=== PATIENT | female | born 1970 | race African-American/Black ===

== ENCOUNTER 2024-06-28 14:54 | Emergency (ER) | payer OTHER, SELFPAY ==
--- NOTE | ~2024-06-28 | XR_ITS ---
CLINICAL HISTORY: fall 4 view right wrist Comparison: None Findings: There is cortical irregularity in the triquetral bone. There is no dislocation. There are ausm-xh-zepbzeuw degenerative changes. No radiopaque foreign body. No abnormal widening of the scapholunate interval. IMPRESSION: 1. Diffuse soft tissue swelling. 2. Suspect a nondisplaced triquetral bone fracture. This document has been electronically signed by: Pretty Hudson DO on 06/28/2024 20:59:11
--- NOTE | ~2024-06-28 | XR_ITS ---
CLINICAL HISTORY: trauma 3 view left shoulder Comparison: None Findings: No fractures or dislocations. Mild narrowing of the glenohumeral joint. Moderate narrowing of the acromioclavicular joint. No significant degenerative spurring. No radiopaque foreign body. IMPRESSION: No acute fracture or dislocation. This document has been electronically signed by: Pretty Hudson DO on 06/28/2024 16:37:24
--- NOTE | ~2024-06-28 | XR_ITS ---
CLINICAL HISTORY: trauma 3 view left elbow Comparison: None Findings: No acute fractures. Normal alignment. No significant loss of joint space, osteophytes, or erosions. No joint effusion. No radiopaque foreign body. IMPRESSION: No acute fracture or dislocation. This document has been electronically signed by: Pretty Hudson DO on 06/28/2024 17:07:08
--- NOTE | ~2024-06-28 | XR_ITS ---
CLINICAL HISTORY: trauma 4 view left wrist Comparison: None Findings: There is cortical irregularity in the triquetral bone. There is a small articulating lucency in the medial distal radius that is best seen on the oblique projection. No dislocation. Naxg-yr-melbyaol degenerative changes in the 1st carpometacarpal, intercarpal and radiocarpal joints. No radiopaque foreign body. IMPRESSION: 1. Nondisplaced fracture suspected in the triquetral bone. 2. Probable nondisplaced articulating fracture in the medial distal radius. This document has been electronically signed by: Pretty Hudson DO on 06/28/2024 16:44:17
--- NOTE | ~2024-06-28 | CT_ITS ---
CLINICAL HISTORY: trauma CT CERVICAL SPINE WITHOUT CONTRAST Comparison: None Findings: Minimal grade 1 spondylolisthesis C5-6, likely degenerative. Moderate disc space narrowing with endplate spurring C5-6. No acute fractures or dislocations. Please see separate report for CT head/brain. No cervical fluid collections or masses. Probable atrophic thyroid gland. Lung apices are clear. IMPRESSION: No acute fracture in the cervical spine. This document has been electronically signed by: Pretty Hudson DO on 06/28/2024 17:29:32
--- NOTE | ~2024-06-28 | CT_ITS ---
CLINICAL HISTORY: trauma CT HEAD WITHOUT CONTRAST Comparison: None Findings: No acute intracranial hemorrhage, extra-axial fluid collection, hydrocephalus or midline shift. No significant atrophy-like change No significant white matter disease. There is no sinus or mastoid fluid. Visualized orbits: No acute abnormalities. There is no acute fracture. IMPRESSION: 1. No acute intracranial hemorrhage. This document has been electronically signed by: Pretty Hudson DO on 06/28/2024 17:25:26
--- NOTE | ~2024-06-28 | XR_ITS ---
CLINICAL HISTORY: pain 4 view left knee Comparison: None Findings: No fractures or dislocations. Wtib-qx-fsnotdkk tricompartmental joint space narrowing. Faint meniscal calcifications. No joint effusion. No radiopaque foreign body. IMPRESSION: No acute fracture, dislocation or significant joint effusion. This document has been electronically signed by: Pretty Hudson DO on 06/28/2024 17:06:53
--- NOTE | ~2024-06-28 | XR_ITS ---
CLINICAL HISTORY: pain 4 view right knee Comparison: None Findings: Bones intact. No dislocations. Jzlr-rz-rkxpdgud tricompartmental joint space narrowing with degenerative spurring. No joint effusion. No radiopaque foreign body. IMPRESSION: No acute fracture, dislocation or significant joint effusion. This document has been electronically signed by: Pretty Hudson DO on 06/28/2024 17:03:41
[2024-06-28 15:45] VITALS: BP 125/57; PULSE 71; RESP 18; TEMP 37; O2SAT 95; BMI 31.1
--- NOTE | 2024-06-28 15:46 | ED.GENADULT ---
HPI - General Adult General Chief complaint: Fall Stated complaint: L Side Pain From Face Down Fell Time Seen by Provider: 06/28/24 19:17 Source: patient and family Mode of arrival: ambulatory Limitations: no limitations History of Present Illness ED Provider: JUDY GONZALES narrative: 53 yo female with PMH of restrictive lung ds, unnamed autoimmune ds, hx of falls here with c/o fall on wednesday night leaned against a door and next thing she knew she was on the ground with knee, wrist pain, head pain. Not on thinners, no known LOC states she falls a lot and it is unclear why. She has no new CP/SOB, GIB, n/v/d, She came in today due to bone pain. Normally follows with [facility] and has told her PCP she falls but no sig work up or PT done for gait issues. MD complaint: fall Onset (ago): day(s) (Wednesday) Location: head, left, right, upper extremity and lower extremity Radiation: non-radiation Severity: mild Quality: aching Pain Consistency: constant Relieving factors: none Exacerbating factors: movement Associated symptoms: denies other symptoms Treatments prior to arrival: none Related Data Allergies Allergy/AdvReac Type Severity Reaction Status Date / Time acetaminophen [From Tylenol] Allergy Anaphylaxis Verified 06/28/24 15:48 levofloxacin [From Levaquin] Allergy Anaphylaxis Verified 06/28/24 15:48 Penicillins [PCN] Allergy Anaphylaxis Verified 06/28/24 15:48 sulfamethoxazole Allergy Anaphylaxis Verified 06/28/24 15:48 [From Bactrim] trimethoprim [From Bactrim] Allergy Anaphylaxis Verified 06/28/24 15:48 Review of Systems Review of Systems: Constitutional : No Fever, No Chills ENT/Mouth : No Ear Pain, No Hoarseness, No sore throat Eyes: No Eye Pain, No Swelling, No Redness, No Foreign Body Cardiovascular : No Chest Pain, No SOB Respiratory : No Cough, No Dyspnea Gastrointestinal : No Nausea, No Vomiting, No Diarrhea, No abdominal Pain Genitourinary : No Dysuria, No Hematuria Musculoskeletal : positive joint pain, No Myalgias, No Joint Swelling Skin : No Skin lacerations, No rash Neuro : No Weakness, No Numbness, No Loss of Consciousness, No Dizziness, No Headache All other systems reviewed and are negative [facility] Past Medical History Attestation statement: The following information was validated with the patient. Medical History Fall Social History Social History (Updated 06/28/24 @ 20:50 by Roselia Vizcarra DO) Patient Tobacco Use Status: Never used Tobacco Advance Directives: No Advance Directives Information Provided: No Do you have a plan to hurt others: No Plan Physical Exam ED Vital Signs: Vital Signs - 24 hr 06/28/24 15:45 Temperature 98.6 F Pulse Rate 71 Respiratory Rate 18 Blood Pressure 125/57 L Pulse Oximetry 95 Oxygen Delivery Method Room Air BMI result Body Mass Index 31.1 Appearance: Alert. Oriented X3. No acute distress. Eyes: Pupils equal, round and reactive to light. ENT: Pharynx normal. Neck: Normal inspection. Neck supple. CVS: Normal heart rate and rhythm. Pulses normal. Respiratory: No respiratory distress. Breath sounds normal. Abdomen: Soft and non-tender. Skin: Skin warm and dry. Normal skin color. Extremities: No lower extremity edema. ttp along both knees, shoulder L wrist and R wrist - NV intact Neuro: Oriented X 3. No motor deficit. No sensory deficit. Course Course Course Narrative: RME, this is a rapid medical exam performed by Carlin Martini please refer to primary provider for complete H&P- 53-year-old female presents for evaluation of left-sided pain after falling 3 days ago. She reports that she had a mechanical fall, struck her forehead on the ground and also injured her left shoulder, elbow and wrist. Plan for imaging Procedures Orthopedic Splinting/Casting Injury #1: Side: left Upper Extremity Injury Location: wrist Upper Extremity Immobilizer: volar splint Additional Comments: Patient tolerated the procedure well. There were no complications. No neurovascular compromise postprocedure. Injury #2: Side: right Upper Extremity Immobilizer: wrist splint Medical Decision Making Medical Decision Making MDM Narrative: 53 yo female with PMH of restrictive lung ds, unnamed autoimmune ds, hx of falls here with c/o recurrent falls but no dizziness, CP/SOB, GIB symtoms, n/v/d at this time will obtain labs, CT scan of head, neck, xrays she is moving both hands but reports some pain NV intact. No preceding episodes to suggest ACS/VTE, arrhythmia, anemia, dehydration. Overall suspect more trip and fall, no seizures reported. Differential Diagnosis Differential Diagnoses: The differential diagnosis associated with the presentation includes sprain, strain, fracture, anemia, dehydration Admission/Observation Consideration of admission/observation: Escalation of care including admission/observation considered work up negative stable for DC Lab Data [facility] Lab Attestation statement: I reviewed the patient's lab results. 06/28/24 19:48 06/28/24 19:48 Labs: Lab Results 06/28/24 Range/Units 19:48 WBC 5.3 (4.8-10.8) X10*3/uL RBC 4.21 (4.20-5.50) X10*6/uL Hgb 12.2 (12.0-16.0) g/dl Hct 36.6 L (37.0-47.0) % MCV 86.9 (80.0-98.0) fL MCH 29.0 (27.0-33.0) pg MCHC 33.3 (31.0-35.0) g/dl RDW 12.5 (11.0-16.0) % Plt Count 261 (160-400) X10*3/uL MPV 9.4 (9.4-12.3) fL Immature Gran % (Auto) 0.2 (0.0-0.4) % Neut % (Auto) 54.8 (45-73) % Lymph % (Auto) 31.7 (20-40) % [place] % (Auto) 9.5 (2-11) % Eos % (Auto) 3.2 (0-4) % Baso % (Auto) 0.6 (0-2) % Lymph # (Auto) 1.7 (1.2-4.9) X10*3/uL [place] # (Auto) 0.5 (0.1-1.2) X10*3/uL Eos # (Auto) 0.2 (0.0-0.4) X10*3/uL Baso # (Auto) 0.0 (0.0-0.2) X10*3/uL Abs Immat Gran (auto) 0.01 (0.00-0.03) X10*3/uL Absolute Neuts (auto) 2.9 (2.0-8.3) x10*3/uL Absolute Nucleated RBC 0.000 (0.0-0.012) X10*3/uL Nucleated RBC % (auto) 0.0 (0.0-0.2) /100WBC Sodium 141 (135-145) mmol/L Potassium 4.6 (3.3-5.1) mmol/L Chloride 108 (96-108) mmol/L Carbon Dioxide 26 (22-29) mmol/L Anion Gap 12 (12-20) BUN 12 (9-16) mg/dL Creatinine 0.61 (0.5-1.4) mg/dL Estim Creat Clear Calc 101.3 Estimated GFR > 60 Random Glucose 89 (60-115) mg/dL Calcium 9.0 (8.4-10.2) mg/dL Magnesium 2.0 (1.6-2.6) mg/dL Total Bilirubin 0.2 (0.0-1.0) mg/dL Direct Bilirubin < 0.2 (0.0-0.5) mg/dL AST 30 (5-31) U/L ALT 15 (0-31) U/L Alkaline Phosphatase 72 (39-117) U/L Total Protein 7.6 (6.5-8.0) g/dL Albumin 3.9 (3.5-5.0) g/dL Independent Interpretation I performed an independent interpretation of an: EKG, Plain X-Ray (trauma only to L wrist) and CT Scan (no trauma) Interpretation: Rate: 53 Rhythm: sinus bradycardia [place]: normal Normal P waves. Normal RAKESH. Normal QRS complex. ST T wave : no ROD, t wave inversions ant leads qTC: 399 prior studies: unchanged 2022 The study has been interpreted contemporaneously by me. . Radiology Impression Discussion of test interpretation with radiology: I have reviewed the radiologist's reading. Discharge Plan Discharge Clinical Impression: Fall Fracture of wrist Qualifiers: Encounter type: initial encounter Fracture type: closed Laterality: left Qualified Code(s): S62.102A - Fracture of unspecified carpal bone, left wrist, initial encounter for closed fracture Carpal bone fracture Qualifiers: Encounter type: initial encounter Carpal bone: triquetrum Fracture type: closed Fracture alignment: nondisplaced Laterality: left Qualified Code(s): S62.115A - Nondisplaced fracture of triquetrum [cuneiform] bone, left wrist, initial encounter for closed fracture Patient Disposition: Home, Self-Care Instructions: Hand Fracture (ED), Wrist Fracture in Adults (ED) Additional Instructions: return for worsening symptoms or concerns follow up with your doctor in regards to repeat falls and need for physical therapy wear splint until seen by orthopedics please call tomorrow please monitor splint for cold blue hands and pain, keep elevated CT head/cspine, xrays of knees, elbows, shoulder no fracture IMPRESSION: 1. Nondisplaced fracture suspected in the triquetral bone. 2. Probable nondisplaced articulating fracture in the medial distal radius. suspect possible nondisplaced fracture R hand as well will place in more mobile splint IMPRESSION: 1. Diffuse soft tissue swelling. 2. Suspect a nondisplaced triquetral bone fracture. Stand Alone Forms: Work/School Release Print Language: Bengali
--- NOTE | 2024-06-28 19:34 | ECG_ITS ---
Test Reason : FALL Blood Pressure : / mmHG Vent. Rate : 053 BPM Atrial Rate : 053 BPM P-R Int : 178 ms QRS Dur : 086 ms QT Int : 426 ms P-R-T Axes : 067 002 -04 degrees QTc Int : 399 ms Sinus bradycardia Low voltage QRS Cannot rule out Anterior infarct , age undetermined Abnormal ECG No previous ECGs available Referred By: Roselia Vizcarra Electronically Signed By:MICHELE HOLLAND MD
--- OUTSIDE RECORDS SUMMARY | 2024-06-28 19:34 | XMS_ITS ---
Author Name [facility] Organization Unknown History of Medication Use Medication Directions Dispensed Refills Start Date End Date Stat us nystatin 444002 UNIT/GM powder APPLY TOPICALLY TWO TIMES A DAY FOR 14 DAYS 01/05/2024 active Melatonin 1 MG Tab melatonin 1 mg tablet TAKE 1 TABLET 1 HOUR PRIOR TO BEDTIME 01/05/2024 active SUMAtriptan (IMITREX) 50 MG tablet Take 1 tablet (50 mg total) by mouth. 01/05/2024 active budesonide-formoterol (SYMBICORT) 160-4.5 MCG/ACT inhaler Inhale 2 puffs. 01/05/2024 acti ve nitroglycerin (NITROSTAT) 0.3 MG SL tablet nitroglycerin 0.3 mg sublingual tablet DISSOLVE 1 TABLET UNDER TONGUE EVERY 5 MINUTES NEEDED FOR CHEST PAIN FOR CHEST PAIN NOT IMPROVED BY REST SEEK IMMEDIATE MEDICAL ATTENTION 01/05/2024 active fluticasone (FloNASE) 50 mcg/spray nasal spray into each nostril. 01/05/2024 active meloxicam (MOBIC) 15 MG tablet meloxicam 15 mg tablet 01/05/2024 active naproxen (NAPROSYN) 500 MG tablet naproxen 500 mg tablet 01/05/2024 active diclofenac (VOLTAREN) 1 % gel diclofenac 1 % topical gel APPLY 2 GRAMS TOPICALLY 3 TIMES A DAY NEEDED FOR PAIN NOT TO EXCEED 8 GRAMS A DAY SINGLE JOINT OF UPPER EXTREM. NOT TO EXCEEDS 32 GRAMS 01/05/2024 active ketoconazole (NIZORAL) 2 % cream APPLY 1 APPLICATION TOPICALLY TO AFFECTED AREA ONCE A DAY 01/05/2024 active DULoxetine (CYMBALTA) 30 MG capsule duloxetine 30 mg capsule,delayed release TAKE ONE CAPSULE BY MOUTH EVERY DAY INCREASE TO 2 DAILY IF TOLLERATING AFTER 2 WEEKS 01/05/2024 active fluconazole (diFLUcan) 150 MG tablet Oral for 28 01/05/2024 active cetirizine (ZyrTEC) 10 MG tablet Take 1 tablet (10 mg total) by mouth daily. 01/05/2024 active clotrimazole (LOTRIMIN) 1 % cream clotrimazole 1 % topical cream APPLY TWO TIMES A DAY FOR 7 DAYS UNDER BOTH BREASTS IF RASH DOES NOT RESOLVE IN 7 DAYS USE FOR ADDITIONAL 7 DAYS CALL IF WORSENING 01/05/2024 active EPINEPHrine 0.3 mg/0.3 mL IJ auto-injection INJECT 0.3 MG INTRAMUSCULARLY ONCE NEEDED FOR ANAPHYLACTIC REACTION 01/05/2024 active levothyroxine (SYNTHROID, LEVOTHROID) 112 MCG tablet TAKE 1 TABLET BY MOUTH DAILY WEDNESDAY THROUGH WEDNESDAY, AND TAKE 2 TABLETS ON WEDNESDAY RECHECK IN 8 WEEKS) 01/05/2024 active cyclobenzaprine (FLEXERIL) 10 MG tablet Take 1 tablet (10 mg total) by mouth 2 (two) times a day as needed. 01/05/2024 active albuterol (PROVENTIL HFA; VENTOLIN HFA) 108 (90 Base) MCG/ACT inhaler albuterol sulfate HFA 90 mcg/actuation aerosol inhaler 01/05/2024 active Multiple Vitamins-Minerals (Multivitamin Adult) Chew Tab multivitamin 01/05/2024 active celeCOXIB (CeleBREX) 200 MG capsule Take 1 capsule (200 mg total) by mouth daily as needed. 01/05/2024 active Cholecalciferol (VITAMIN D3) 2000 UNITS Cap capsule cholecalciferol (vitamin D3) 50 mcg (2,000 unit) capsule TAKE ONE CAPSULE BY MOUTH DAILY 01/05/2024 active Problems Problem Status Onset Date Problem Type Date of Resoluti on Source ILD (interstitial lung disease) active 2024-01-03 ProblemAct [facility] Body aches active EncounterDiagnosisAct [facility] Positive SUGAR (antinuclear antibody) active EncounterDiagnosisAct [facility]
[2024-06-28 19:55] LABS: MANUAL DIFF FLAG NO
[2024-06-28 19:56] LABS: Basophils Percent Auto 0.6 % (0-2); Eosinophils Absolute Auto 0.2 X10*3/uL (0.0-0.4); Eosinophils Percent Auto 3.2 % (0-4); Hematocrit 36.6 % (37.0-47.0); Hemoglobin 12.2 g/dl (12.0-16.0); Imm Gran Abs Auto 0.01 X10*3/uL (0.00-0.03); Imm Gran Pct Auto 0.2 % (0.0-0.4); Lymphocytes Absolute Auto 1.7 X10*3/uL (1.2-4.9); Lymphocytes Percent Auto 31.7 % (20-40); Mean Corpuscular HGB Conc 33.3 g/dl (31.0-35.0); Mean Corpuscular Volume 86.9 fL (80.0-98.0); Mean Platelet Volume 9.4 fL (9.4-12.3); Monocytes Absolute Auto 0.5 X10*3/uL (0.1-1.2); Monocytes Percent Auto 9.5 % (2-11); Neutrophils Absolute Auto 2.9 x10*3/uL (2.0-8.3); Neutrophils Percent Auto 54.8 % (45-73); Platelet Count 261 X10*3/uL (160-400); Red Blood Count 4.21 X10*6/uL (4.20-5.50); Red Cell Distribution Width 12.5 % (11.0-16.0); White Blood Count 5.3 X10*3/uL (4.8-10.8)
[2024-06-28 20:14] LABS: Alanine Aminotransferase 15 U/L (0-31); Albumin Level 3.9 g/dL (3.5-5.0); Alkaline Phosphatase 72 U/L (39-117); Anion Gap 12 (12-20); Aspartate Amino Transferase 30 U/L (5-31); Bilirubin Direct < 0.2 mg/dL (0.0-0.5); Bilirubin Total 0.2 mg/dL (0.0-1.0); Blood Urea Nitrogen 12 mg/dL (9-16); Carbon Dioxide 26 mmol/L (22-29); Chloride 108 mmol/L (96-108); Creatinine Clr Calc Pharmacy 101.3; Estimated Glomerular Filt Rate > 60; Glucose Random 89 mg/dL (60-115); Potassium 4.6 mmol/L (3.3-5.1); Sodium 141 mmol/L (135-145); Total Protein 7.6 g/dL (6.5-8.0)
[2024-06-28 21:27] VITALS: BP 130/62; PULSE 74; RESP 18; TEMP 36.8; O2SAT 97
== END 2024-06-28 21:29 | disposition home or self-care (01) ==
PROVIDERS: Emergency Provider Emergency Medicine
DX: S62.102A Fracture of unspecified carpal bone, left wrist, initial encounter for closed fracture (principal); S62.115A Nondisplaced fracture of triquetrum [cuneiform] bone, left wrist, initial encounter for closed fracture; W18.39XA Other fall on same level, initial encounter; R00.1 Bradycardia, unspecified; R51.9 Headache, unspecified; M25.562 Pain in left knee; M25.561 Pain in right knee; M25.522 Pain in left elbow; M25.512 Pain in left shoulder; R29.6 Repeated falls; Z91.81 History of falling; Y93.9 Activity, unspecified; Y92.9 Unspecified place or not applicable; Y99.9 Unspecified external cause status
CPT/HCPCS: 29125; 36415; 70450; 72125; 73030; 73080; 73110; 73564; 80048; 80076; 83735; 85025; 93005; 99283; 99284

== ENCOUNTER → 2024-06-28 15:46 | Outpatient (BNV) | payer OTHER, SELFPAY | PROVIDERS: Visit Provider Radiology Diagnostic Radiology | DX: S19.9XXA Unspecified injury of neck, initial encounter (principal); S09.90XA Unspecified injury of head, initial encounter; M25.562 Pain in left knee; M25.561 Pain in right knee; S49.92XA Unspecified injury of left shoulder and upper arm, initial encounter; S59.902A Unspecified injury of left elbow, initial encounter; S62.115A Nondisplaced fracture of triquetrum [cuneiform] bone, left wrist, initial encounter for closed fracture; S69.91XA Unspecified injury of right wrist, hand and finger(s), initial encounter | CPT/HCPCS: 70450; 72125; 73030; 73080; 73110; 73564 ==

== ENCOUNTER → 2024-06-28 19:34 | Outpatient (BNV) | payer OTHER, SELFPAY | PROVIDERS: Emergency Provider Emergency Medicine; Visit Provider Internal Medicine Cardiovascular Disease | DX: R94.31 Abnormal electrocardiogram [ECG] [EKG] (principal) | CPT/HCPCS: 93010 ==

== ENCOUNTER 2024-07-14 14:42 | Outpatient (REF) | payer OTHER, SELFPAY ==
--- NOTE | ~2024-07-14 | XR_ITS ---
EXAMINATION: XR WRIST, RIGHT CLINICAL INFORMATION: M25.531 - Pain in right wrist COMPARISON: None available. TECHNIQUE: PA, lateral, and oblique views of the right wrist. FINDINGS: There is mild loss of radiocarpal joint space. The intercarpal joint spaces preserved. There is negative ulnar variance. No acute fracture or bony abnormality seen. The soft tissues are normal. XR/XR wrist RT min 3V IMPRESSION: Mild degenerative changes wrist. No visible acute fracture or dislocation seen. Electronically signed by: Ramy Hastings MD 07/17/2024 09:41 AM EST
--- NOTE | ~2024-07-14 | XR_ITS ---
EXAMINATION: XR WRIST, LEFT CLINICAL INFORMATION: M25.532 - Pain in left wrist COMPARISON: 06/28/2024. TECHNIQUE: PA, lateral, and oblique views of the left wrist. FINDINGS: There is a mild diffuse osteopenia. No definitive fracture, dislocation, or suspicious bone lesion. There is normal alignment. Previous exam questioned a triquetral fracture, which I do not appreciate. Carpal bones appear intact and normally aligned. Mild to moderate radiocarpal joint space narrowing. Mild osteoarthritic changes of the first CMC joint and STT joints. Radius and ulna appear intact. Soft tissues appear normal. XR/XR wrist LT min 3V IMPRESSION: 1. Osteopenia, with no definitive fracture or dislocation identified. 2. Previous exam questioned a triquetral fracture, which I do not appreciate. There is no radiographically detectable fracture. 3. Arthritic changes as discussed. Electronically signed by: Saravanan Gilliam MD 07/26/2024 03:15 PM [facility]
== END 2024-07-14 14:43 | disposition home or self-care (01) ==
LOC: HO.HOSX 14:42
DX: M79.643 Pain in unspecified hand (principal); M25.531 Pain in right wrist; M25.532 Pain in left wrist; S62.112A Displaced fracture of triquetrum [cuneiform] bone, left wrist, initial encounter for closed fracture; M79.642 Pain in left hand
CPT/HCPCS: 73110; 99202

== ENCOUNTER 2024-07-14 14:42 | Outpatient (AMB) | payer OTHER, SELFPAY ==
--- NOTE | 2024-07-14 14:55 | A.OFFVIS_ITS ---
Vital Signs 07/14/24 15:11 Height 5 ft 3 in Weight 165 lb BMI 29.2 Handedness Right Intake Visit Reasons: FC - B/L wrist fx DOI: 06/25/24 Intake Note: Genoveva is a 54 year old right hand dominant female who presents today as a new patient for a fracture care visit of her right wrist fracture s/p fall DOI:06/25/24. Patient report she was just walking and thinks she may have passed out because she has no memory of the fall, just her waking up on the floor. She was seen at the [facility] ED on 06/28/24 for this injury. Patient presents today with a short arm cast, this was removed for updated imaging. She expresses she was seen at [facility] for her left wrist fracture and was placed in a cast however she did not have a satisfying experience at [facility] and presents today for a second opinion. Patient reports continued pain in her bilateral wrist. Her right wrist has an exacerbation of pain when she uses it,states she drops things due to lack of strength. She states her left wrist is still in pain even with the cast on and swelling in her fingers that would not resolve. She says her cast felt loose. She states the doctor at [facility] told her he did not see a cast and when asked where she was seen for this fracture he rolled his eyes and said well I want you to be able to wash your hands. Allergies acetaminophen [From Tylenol] Allergy (Verified 07/14/24 15:11) Anaphylaxis levofloxacin [From Levaquin] Allergy (Verified 07/14/24 15:11) Anaphylaxis Penicillins [PCN] Allergy (Verified 07/14/24 15:11) Anaphylaxis sulfamethoxazole [From Bactrim] Allergy (Verified 07/14/24 15:11) Anaphylaxis trimethoprim [From Bactrim] Allergy (Verified 07/14/24 15:11) Anaphylaxis HPI HPI FC - B/L wrist fx DOI: 06/25/24: Details: Genoveva is a 54 year old right hand dominant female who presents today as a new patient for a fracture care visit of her right wrist fracture s/p fall DOI:06/25/24. Patient report she was just walking and thinks she may have passed out because she has no memory of the fall, just her waking up on the floor. She was seen at the [facility] ED on 06/28/24 for this injury. Patient presents today with a short arm cast, this was removed for updated imaging. She expresses she was seen at [facility] for her left wrist fracture and was placed in a cast however she did not have a satisfying experience at [facility] and presents today for a second opinion. Patient reports continued pain in her bilateral wrist. Her right wrist has an exacerbation of pain when she uses it,states she drops things due to lack of strength. She states her left wrist is still in pain even with the cast on and swelling in her fingers that would not resolve. She says her cast felt loose. She states the doctor at [facility] told her he did not see a cast and when asked where she was seen for this fracture he rolled his eyes and said well I want you to be able to wash your hands. [facility] Medical History Fall Social History (Updated 07/14/24 @ 15:12 by VERÓNICA Jiemnez) Alcohol intake: never Patient Tobacco Use Status: Never used Tobacco Current occupational status: disabled Review of Systems Const All systems reviewed & are unremarkable except as noted in HPI and below Physical Exam Vital Signs: BMI result Body Mass Index 29.2 Extrem Other: Patient is alert, oriented, and in no acute distress. Neuro: Normal sensation of the tips of all digits of the bilateral hand at this time Vascular: Cap refill brisk Pain: Moderate tenderness to palpation of the triquetrum of the L wrist Tenderness to palpation of the anatomical snuffbox of the L wrist Mild tenderness to palpation of the ulnar aspect of the R wrist ROM: Patient can make a closed fist and extend all digits of bilateral hands fully Skin: No lacerations or abrasions. General: No ecchymosis, erythema, or evidence of infection. Psych: Appears grossly normal Affect normal Attitude cooperative Results Reviewed Results Reviewed: X-rays obtained in the office today and independently reviewed by me, Lamont Marin PA-C, demonstrate nondisplaced fracture of the triquetrum right wrist. No radio evident fracture of the scaphoid of the right wrist Assessment & Plan Assessment & Plan (1) Tenderness of anatomical snuffbox: Code(s): M79.643 - Pain in unspecified hand Category: Medical (2) Fracture of triquetrum: Code(s): S62.113A - Displaced fracture of triquetrum [cuneiform] bone, unspecified wrist, initial encounter for closed fracture Category: Medical Plan 1. Nondisplaced triquetral fracture of left wrist 2. Anatomical snuffbox tenderness of left wrist date of injury 06/25/2024 Due to anatomical snuffbox tenderness, patient was placed into a Velcro thumb spica splint to be worn like a cast patient is also referred to imaging for urgent CT scan of the left wrist to assess for any occult fracture of the scaphoid the patient will follow-up after the CT scan for results review and discussion of further treatment options if indicated Patient is amenable to this plan 2. Tenderness of right triquetrum Patient was provided wit a Velcro wrist splint to be worn with daytime activities for clinical suspicion of potential fractur of the right triquetrum Patient was advised she remove the splint on motion of the right hand and wrist Patient was amenable To this plan Patient will follow-up after since CT scan, sooner any acute concerns Orders: Orders XR wrist RT min 3V Today M25.531 - Pain in right wrist XR wrist LT min 3V Today M25.532 - Pain in left wrist CT wrist LT wo IV con Today M79.643 - Pain in unspecified hand, S62.113A - Displaced fracture of triquetrum [cuneiform] bone, unspecified wrist, initial encounter for closed fracture Coding Level of Care Code New Pt Level 3 (86758) Diagnoses Tenderness of anatomical snuffbox M79.643 Fracture of triquetrum S62.113A
[2024-07-14 15:11] VITALS: BMI 29.2
== END 2024-07-14 15:50 | disposition home or self-care (01) ==
DX: M79.643 Pain in unspecified hand (principal); S62.113A Displaced fracture of triquetrum [cuneiform] bone, unspecified wrist, initial encounter for closed fracture
CPT/HCPCS: 99203

== ENCOUNTER → 2024-07-14 14:53 | Outpatient (BNV) | payer OTHER, SELFPAY | PROVIDERS: Visit Provider Radiology Diagnostic Radiology | DX: M85.80 Other specified disorders of bone density and structure, unspecified site (principal) | CPT/HCPCS: 73110 ==

== ENCOUNTER 2024-07-19 13:04 | Outpatient (REF) | payer OTHER, SELFPAY | END 2024-07-19 13:05 | disposition home or self-care (01) | LOC: HO.CT 13:04 | DX: M79.642 Pain in left hand (principal); S62.112D Displaced fracture of triquetrum [cuneiform] bone, left wrist, subsequent encounter for fracture with routine healing | CPT/HCPCS: 73200 ==

== ENCOUNTER → 2024-07-19 13:07 | Outpatient (BNV) | payer OTHER, SELFPAY | PROVIDERS: Visit Provider Radiology Diagnostic Radiology | DX: S62.015A Nondisplaced fracture of distal pole of navicular [scaphoid] bone of left wrist, initial encounter for closed fracture (principal) | CPT/HCPCS: 73200 ==

== ENCOUNTER 2024-07-24 12:52 | Outpatient (REF) | payer OTHER, SELFPAY ==
--- NOTE | ~2024-07-24 | XR_ITS ---
EXAMINATION: XR KNEE 3 VIEWS LEFT HISTORY: M25.562 - Pain in left knee COMPARISON: Comparison is made with the prior examination dated 06/28/2024. FINDINGS: Standing AP views of the bilateral knees and additional lateral and sunrise patellar views of the left knee are submitted. Osseous mineralization is normal. There is no fracture or dislocation. There is moderate to severe osteoarthritis of the medial compartment and mild osteoarthritis of the patellofemoral compartment, with joint space narrowing and osteophyte formation. There is moderate osteoarthritis of the medial compartment of the right knee. The soft tissues are unremarkable. There is no joint effusion. XR/XR knee LT 3V IMPRESSION: Osteoarthritis of the left knee as described. Electronically signed by: Pierce Valderrama MD 07/25/2024 08:23 AM [facility]
--- OUTSIDE RECORDS SUMMARY | 2024-07-24 17:32 | XMS_ITS | Clinical Summary ---
Author Organization [facility] Address [address] [facility] [address] [place] [address] Phone Care Team Providers Care Solution Maker Name Role Phone Марина Mercado DO Primary Care Provider [phone] Allergies Active Allergy Reactions Criticality Noted Date Comments Sulfamethoxazole-Trimethoprim Swelling 2022 Doxycycline 03/30/2023 Levofloxacin 03/30/2023 Penicillins 03/30/2023 Sulfa Antibiotics 01/13/2024 Other Reaction(s): Unknown Acetaminophen 03/30/2023 Medications amitriptyline (ELAVIL) 10 MG tablet Take 5 mg by mouth every night 3 Active Cholecalciferol 50 MCG (1999 UT) capsule Take 1 capsule by mouth 1 (one) time each day 1 Active Diclofenac Sodium 1 % gel Apply 2 g topically 3 (three) times a day if needed 2 Active EPINEPHrine (EpiPen 2-Eliseo) 0.3 MG/0.3ML injection syringe Inject 0.3 mg into the shoulder, thigh, or buttocks if needed 3 Active fluticasone (FLONASE) 50 MCG/ACT nasal spray Administer 2 sprays into affected nostril(s) 1 (one) time each day 2 Active levothyroxine (SYNTHROID, LEVOTHROID) 112 MCG tablet Take 112 mcg by mouth 1 (one) time each day 3 Active nitroglycerin (NITROSTAT) 0.[address] under the tongue if needed 0 Active cetirizine (ZyrTEC ALLERGY) 10 MG tablet Take 10 mg by mouth 1 (one) time each day 3 Active naproxen (NAPROSYN) 500 MG tablet Take 500 mg by mouth 2 Active Active Problems Problem Noted Date Diagnosed Date 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 Interstitial pulmonary disease 03/31/2023 1 Obstructive sleep apnea 03/31/2023 03/31/20 Personal history of kidney stones 03/31/2023 Resolved Problems Problem Noted Date Diagnosed Date Resolved Date Autoantibody level - finding 03/31/2023 03/31/2023 03/31/2023 Family History Medical History Relation Comments Alcohol abuse Father Cancer Father mouth Diabetes Father Heart attack Father Hyperlipidemia Father Hypertension Father Mental illness Mother Relation Status Comments Father Mother Social History Tobacco Use Types Packs/Day Years Used Date Smoking Tobacco: Former Cigarettes Smokeless Tobacco: Never Tobacco Cessation:Counseling Given: Not Answered Alcohol Use Standard Drinks/Week Comments Never 0 (1 standard drink = 0.6 oz pur e alcohol) Comments Unknown Sex and Gender Information Value Date Recorded Sex Assigned at Not on file Legal Sex Female 8:40 AM EDT Gender Identity Not on file Sexual Orientation Not on file Last Filed Vital Signs Vital Sign Reading Time Taken Comments Blood Pressure 106/60 01/13/2024 2:37 PM EDT Pulse 64 01/13/2024 2:37 PM EDT Temperature - - Respiratory Rate - - Oxygen Saturation 98% 03/31/2023 9:40 AM EDT Inhaled Oxygen Concentration - - Weight 72.6 kg (160 lb) 01/13/2024 2:37 PM EDT Height 160 cm (5' 3 ) 03/31/2023 9:40 AM EDT Body Mass Index 28.34 03/31/2023 9:40 AM EDT Plan of Treatment Upcoming Encounters Date Type Department Care Team (Late st Contact Info) Description 01/15/2025 3:00 PM EDT Office Visit [facility] [address] [phone] Pro Mari MD [address] [phone] Health Maintenance Due Date Last Done Comments Breast Cancer Screening 1969 Pneumococcal Vaccine: Pediat rics (0 to 5 Years) and At-Risk Patients (6 to 64 Years) (1 of 2 - PCV) 1975 Hepatitis B Vaccine (1 of 3 - 19+ 3-dose series) 07/13 Colorectal Cancer Screening: Annual FOBT 2018 Colorectal Cancer Screening: Colonoscopy 2018 Colorectal Cancer Screening: Sigmoidoscopy 2018 Influenza Vaccine (#1) 2024 Insurance [facility] ([id number]) [facility] ([id number]) Care Teams Solution Maker Relationship Specialty Start Date End Date Марина Mercado DO [address] [place] [phone] PCP - General Pediatrics 01/13/24
--- OUTSIDE RECORDS SUMMARY | 2024-07-24 17:33 | XMS_ITS | Encounter Summary ---
Author Organization [facility] Address [address] [place] [address] Care Team Providers Care Electrical And Instrumentation Manager Name Role Phone Марина Mercado MD Primary Care Provider Reason for Visit * Reason Comments Results Request Encounter Details Date Type Department Care Team (Late st Contact Info) Description 07/21/2024 Telephone [facility] Rheumatology [address] [phone] Irina Yost MD [address] [place] [id number] Results Request Social History Tobacco Use Types Packs/Day Years Used Date Smoking Tobacco: Never Passive Smoke Exposure: Never Smokeless Tobacco: Never Alcohol Use Standard Drinks/Week Comments Never 0 (1 standard drink = 0.6 oz pur e alcohol) Sex and Gender Information Value Date Recorded Sex Assigned at Female 10/16/2022 9:15 AM EDT Gender Identity Female 10/16/2022 9:15 AM EDT Sexual Orientation Heterosexual (straight) 10/16 9:15 AM EDT documented as of this encounter Miscellaneous Notes * Telephone Encounter - Arnel Reilly LPN - 07/21/2024 2:41 PM EST Irina Yost MD 01/17/2024 9:19 AM EDT Please let the patient know that I have reviewed the lab results. Negative findings in rheumatologyexcept low titer positive SUGAR, for which we have discussed during the visit, she may follow up as needed or in 6 weeks if she prefers. Patient was informed about the MD message. Patient stated that she will call the office to schedulea f/up visit. documented in this encounter Plan of Treatment Not on file documented as of this encounter Visit Diagnoses Not on filedocumented in this encounter Care Teams Electrical And Instrumentation Manager Relationship Specialty Start Date End Date Марина Mercado MD [address] [place] [address] PCP - General Pediatric, General 05/14/22 documented as of this encounter
--- OUTSIDE RECORDS SUMMARY | 2024-07-24 17:33 | XMS_ITS | Patient Health Record ---
Author Organization [facility] Address [address] [place] [address] Care Team Providers Care Clipper Machine Name Role Phone Марина Mercado M.D. Primary Care Provider Unavailable Flower Huang Unavailable [phone] Allergies Allergen (clinical drug ingredient) Drug/Non Drug Allergy documented on EMR Reaction Allergy Type Onset Date Status Levaquin Unknown Drug Allergy Active acetaminophen Tylenol Unknown Drug Allergy Act amanda ciprofloxacin Ciprofloxacin Unknown Drug Allergy Active doxycycline Doxycycline Unknown Drug Allergy Act amanda Penicillin Unknown Drug Allergy Active Substance with sulfonamide structure and antibacterial mechanism of action (substance) Sulfa Antibiotics Unknown Drug Allergy Active Reason For Referral No Information Medications Medication SIG (Take, Route, Frequency, Duration) Notes Start Date End Date Status Cetirizine HCl Activ e Diclofenac Sodium 1 % External for 5 Active Albuterol Sulfate HFA 108 (90 Base) MCG/ACT Inhalation for 25 Activ e Nitroglycerin Active Aspirin Active Fluconazole 150 MG Oral for 28 Active Gabapentin 100 MG Oral for 30 Active Levothyroxine Sodium 175 MCG Oral for 35 Active Melatonin 1 MG Oral for 30 Act amanda Social History Tobacco Use: Social History Observation Description Date Details (start date - stop date) Former Smoker NA - NA Tobacco Use/Smoking Question Answer Notes Are you a: former smoker Additional Findings: Tobacco Non-User Current no n-smoker Alcohol Screen Question Answer Notes Did you have a drink containing alcohol in the p ast year? No Points 0 Interpretation Negative Tobacco use other than smoking: Question Answer Notes Are you an other tobacco user? No Problems Problem Type SNOMED Code ICD Code Onset Dates Problem Status W/U Status Risk Notes Problem [id number] Neuropathy (G62.9) Active confirmed Problem [id number] Atherosclerosi s of artery of left lower extremity (I70.202) Active confirmed Plan Of Treatment No Information Insurance Providers Payer Name Payer Address Payer Phone Subscriber Number Group Number Insured Name Patient Relationship to Insured Coverage Start Date Coverage End Date [facility] Claims [address] [place] [address] [phone] [id number] Genoveva Reveles Self - patient is the insured Medical (General) History Medical History History ICD Code Anxiety Arthritis asthma Back,Hip,and Knee pain Fibromyalgia Chicken pox Headaches/Migraines Lung disease Lupus Numbness raynauds disease thyroid Autoimmune disorder Surgical History Surgery Date(Month/Year) gall bladder 1989
--- OUTSIDE RECORDS SUMMARY | 2024-07-24 17:33 | XMS_ITS | Clinical Summary ---
Author Organization [facility] Address [address] [place] [address] Care Team Providers Care Photographic Equipment Mechanic Name Role Phone Марина Mercado MD Primary Care Provider Allergies Active Allergy Reactions Criticality Noted Date Comments Acetaminophen Other (See Comments) 11/12/2020 Doxycycline Other (See Comments) 11/12/2020 Levofloxacin Other (See Comments) 11/12/2020 Penicillins Other (See Comments) 11/12/2020 Sulfamethoxazole-Trimethoprim Angioedema High 2020 Medications Medication Sig Dispensed Refills Start Date End Date Status albuterol (PROVENTIL HFA; VENTOLIN HFA) 108 (90 Base) MCG/ACT inhaler albuterol sulfate HFA 90 mcg/actuation aerosol inhaler 09/01/2022 Active budesonide-formote rol (SYMBICORT) 160-4.5 MCG/ACT inhaler Inhale 2 puffs. Active celeCOXIB (CeleBREX) 200 MG capsule Take 1 capsule (200 mg total) by mouth daily as needed. 07/22/2022 Active Cholecalciferol (VITAMIN D3) 2000 UNITS Cap capsule cholecalciferol (vitamin D3) 50 mcg (2,000 unit) capsule TAKE ONE CAPSULE BY MOUTH DAILY Active clotrimazole (LOTRIMIN) 1 % cream clotrimazole 1 % topical cream APPLY TWO TIMES A DAY FOR 7 DAYS UNDER BOTH BREASTS IF RASH DOES NOT RESOLVE IN 7 DAYS USE FOR ADDITIONAL 7 DAYS CALL IF WORSENING Activ e cyclobenzaprine (FLEXERIL) 10 MG tablet Take 1 tablet (10 mg total) by mouth 2 (two) times a day as needed. 07/22/2022 Active diclofenac (VOLTAREN) 1 % gel diclofenac 1 % topical gel APPLY 2 GRAMS TOPICALLY 3 TIMES A DAY NEEDED FOR PAIN NOT TO EXCEED 8 GRAMS A DAY SINGLE JOINT OF UPPER EXTREM. NOT TO EXCEEDS 32 GRAMS 01/21/2022 Active DULoxetine (CYMBALTA) 30 MG capsule duloxetine 30 mg capsule,delayed release TAKE ONE CAPSULE BY MOUTH EVERY DAY INCREASE TO 2 DAILY IF TOLLERATING AFTER 2 WEEKS Active fluticasone (FloNASE) 50 mcg/spray nasal spray into each nostril. 11/05/2021 Active levothyroxine (SYNTHROID, LEVOTHROID) 112 MCG tablet TAKE 1 TABLET BY MOUTH DAILY WEDNESDAY THROUGH WEDNESDAY, AND TAKE 2 TABLETS ON WEDNESDAY RECHECK IN 8 WEEKS) 07/02/2022 Active Melatonin 1 MG Tab melatonin 1 mg tablet TAKE 1 TABLET 1 HOUR PRIOR TO BEDTIME Active meloxicam (MOBIC) 15 MG tablet meloxicam 15 mg tablet Active naproxen (NAPROSYN) 500 MG tablet naproxen 500 mg tablet 09/25/2021 Ac tive nitroglycerin (NITROSTAT) 0.3 MG SL tablet nitroglycerin 0.3 mg sublingual tablet DISSOLVE 1 TABLET UNDER TONGUE EVERY 5 MINUTES NEEDED FOR CHEST PAIN FOR CHEST PAIN NOT IMPROVED BY REST SEEK IMMEDIATE MEDICAL ATTENTION Active nystatin 075165 UNIT/GM powder APPLY TOPICALLY TWO TIMES A DAY FOR 14 DAYS 06/25/2022 Active SUMAtriptan (IMITREX) 50 MG tablet Take 1 tablet (50 mg total) by mouth. 10/17/2021 Active Multiple Vitamins-Minerals (Multivitamin Adult) Chew Tab multivitamin Active cetirizine (ZyrTEC) 10 MG tablet Take 1 tablet (10 mg total) by mouth daily. 02/12/2023 Activ e EPINEPHrine 0.3 mg/0.3 mL IJ auto-injection INJECT 0.3 MG INTRAMUSCULARLY ONCE NEEDED FOR ANAPHYLACTIC REACTION 02/09/2023 Active fluconazole (diFLUcan) 150 MG tablet Oral for 28 Active ketoconazole (NIZORAL) 2 % cream APPLY 1 APPLICATION TOPICALLY TO AFFECTED AREA ONCE A DAY Active Active Problems Problem Noted Date Diagnosed Date ILD (interstitial lung disease) 01/03/2024 Encounters Date Type Department Care Team Description 07/21/2024 Telephone [facility] Medical [facility] Rheumatology [address] [place] [phone] Irina Yost MD Results Request from Last 3 Months Social History Tobacco Use Types Packs/Day Years Used Date Smoking Tobacco: Never Passive Smoke Exposure: Never Smokeless Tobacco: Never Tobacco Cessation:Counseling Given: Not Answered Alcohol Use Standard Drinks/Week Comments Never 0 (1 standard drink = 0.6 oz pur e alcohol) Sex and Gender Information Value Date Recorded Sex Assigned at Female 10/16/2022 9:15 AM EDT Gender Identity Female 10/16/2022 9:15 AM EDT Sexual Orientation Heterosexual (straight) 10/16 9:15 AM EDT Last Filed Vital Signs Vital Sign Reading Time Taken Comments Blood Pressure 112/72 01/03/2024 11:43 AM EDT Pulse 62 01/03/2024 11:43 AM EDT Temperature 35 ??C (95 ??F) 01/03/2024 11:43 AM EDT Respiratory Rate - - Oxygen Saturation 97% 01/03/2024 11:43 AM EDT Inhaled Oxygen Concentration - - Weight 72.6 kg (160 lb) 01/03/2024 11:43 AM EDT Height 160 cm (5' 3 ) 01/03/2024 11:43 AM EDT Body Mass Index 28.34 01/03/2024 11:43 AM EDT Plan of Treatment Health Maintenance Due Date Last Done Comments Hepatitis C Virus Screening 1969 HIV Screening 1982 DTaP/Tdap/Td Vaccines (1 - Tdap) 1988 Hepatitis B Vaccines (1 of 3 - 19+ 3-dose series) 06/28 Pneumococcal Vaccines 50+ (1 of 2 - PCV) 1988 Pap Smear (Ages 21-65) 1990 Mammogram 2009 Colonoscopy 2014 Zoster (Shingles) Vaccine (1 of 2) 2019 Influenza Vaccine 01/27/2024 COVID-19 Vaccine ( - 2023- season) 2024 Care Teams Photographic Equipment Mechanic Relationship Specialty Start Date End Date Марина Mercado MD [facility] [place] [address] PCP - General Pediatric, General 05/14/22
--- OUTSIDE RECORDS SUMMARY | 2024-07-24 17:33 | XMS_ITS | Encounter Summary ---
Author Organization [employer] Address [address] [place] [address] Care Team Providers Care Shake Table Operator Name Role Phone Марина Mercado Primary Care Provider Reason for Visit * Reason Comments Fall Fall last night unsu re if she passed out. Bl knee pain and swelling. Left shoulder and arm pain and wrist pain. Ubsure if hit head Syncope Encounter Details Date Type Department Care Team (Late st Contact Info) Description 06/27/2024 11:30 AM EST - 06/27/2024 9:40 PM EST Emergency [facility] Emergency [address] [place] [address] Discharge Disposition: Left Against Medical Advice Social History Tobacco Use Types Packs/Day Years Used Date Smoking Tobacco: Former Cigarettes Q uit: 12/15/2003 Smokeless Tobacco: Never Alcohol Use Standard Drinks/Week Comments No 0 (1 standard drink = 0.6 oz pur e alcohol) Sex and Gender Information Value Date Recorded Sex Assigned at Not on file Gender Identity Not on file Sexual Orientation Not on file documented as of this encounter Last Filed Vital Signs Vital Sign Reading Time Taken Comments Blood Pressure 106/76 06/27/2024 5:15 PM EST Pulse 60 06/27/2024 5:15 PM EST Temperature 36.7 ??C (98 ??F) 06/27/2024 5:15 PM EST Respiratory Rate 16 06/27/2024 5:15 PM EST Oxygen Saturation 98% 06/27/2024 5:15 PM EST Inhaled Oxygen Concentration - - Weight 77.1 kg (170 lb) 06/27/2024 11:35 AM EST Height 160 cm (5' 3 ) 06/27/2024 11:35 AM EST Body Mass Index 30.11 06/27/2024 11:35 AM EST documented in this encounter Discharge Disposition Disposition Code Departure Means Destination Left Against Medical Advice documented in this encounter Progress Notes * Elisa Escamilla RN - 06/27/2024 11:36 AM EST Two nights ago she was walking into her apartment and had a syncopal episode. She has pain in both knees, both wrists, the right wrist is worse. She also has pain in the left side of her neck down tothe left hand hurts. She states that she doesn't remember falling and it was unwitnessed. documented in this encounter Plan of Treatment Scheduled Orders Name Type Priority Associated Diagnoses Orde r Schedule ECG Confirmed Scan ECG Once f or 1 Occurrences starting 07/16/2024 until 07/16/2024 documented as of this encounter Procedures Procedure Name Priority Date/Time Associated Diagnosis Comments ECG 12-LEAD STAT 06/27/2024 11:54 AM EST CBC WITH AUTO DIFFERENTIAL STAT 06/27/2024 11:48 AM EST CBC AND DIFFERENTIAL STAT 06/27/2024 11:48 AM EST MAGNESIUM STAT 06/27/2024 11:48 AM EST BASIC METABOLIC PANEL STAT 06/27/2024 11:48 AM EST ECG ANNOTATED 06/27/2024 ECG ANNOTATED 06/27/2024 documented in this encounter Results * ECG 12 lead (06/27/2024 11:54 AM EST) Ventricular Rate ECG 61 BPM GEMUSE Atrial Rate 61 BPM GEMUSE P-R Interval 162 ms GEMUSE QRS Duration 92 ms GEMUSE Q-T Interval 410 ms GEMUSE QTc 412 ms GEMUSE P Wave [place] 34 degrees GEMUSE R [place] -2 degrees GEMUSE T [place] -6 degrees GEMUSE ECG Interpretation Normal sinus rhythm Low voltage QRS Abnormal ECG When compared with ECG of 11-MAR-2023 13:08, No significant change was found Confirmed by David CHASE JAMES ([id number]) on 06/28/2024 8:48:50 AM GEMUSE 06/27/2024 11:5 4 AM EST 06/28/2024 8:48 AM EST Lorenzo Ferris DO ECG ORDERABLES GEMUSE * (ABNORMAL) CBC auto differential (06/27/2024 11:48 AM EST) WBC 5.0 4.8 - 10.8 K/mcL LAB HEMETOLOGY METHOD 06/27/2024 12:51 PM [facility] RBC 4.40 3.80 - 4.80 M/mcL LAB HEMETOLOGY METHOD 06/27/2024 12:51 PM [facility] Hemoglobin 12.3 11.5 - 16.0 g/dL LAB HEMETOLOGY METHOD 06/27/2024 12:51 PM [facility] Hematocrit 39.1 35.0 - 47.0 % LAB HEMETOLOGY METHOD 06/27/2024 12:51 PM [facility] MCV 89.7 79.0 - 98.0 FL LAB HEMETOLOGY METHOD 06/27/2024 12:51 PM [facility] MCH 28.2 27.0 - 32.0 pcg LAB HEMETOLOGY METHOD 06/27/2024 12:51 PM [facility] MCHC 31.5(L) 32.0 - 37.0 g/dL LAB HEMETOLOGY METHOD 06/27/2024 12:51 PM [facility] RDW 12.7 11.0 - 15.0 % LAB HEMETOLOGY METHOD 06/27/2024 12:51 PM [facility] Platelets 268 130 - 400 K/mcL LAB HEMETOLOGY METHOD 06/27/2024 12:51 PM [facility] MPV 9.7 7.0 - 11.0 FL LAB HEMETOLOGY METHOD 06/27/2024 12:51 PM [facility] NRBC 0.0 <1.0 % LAB HEMETOLOGY METHOD 06/27/2024 12:51 PM [facility] NRBC Absolute 0.00 <0.10 K/mcL LAB HEMETOLOGY METHOD 06/27/2024 12:51 PM [facility] Neutrophils Relative 61.1 % LAB HEMETOLOGY METHOD 06/27/2024 12:51 PM [facility] Lymphocytes Relative 24.3 % LAB HEMETOLOGY METHOD 06/27/2024 12:51 PM [facility] Monocytes Relative 10.2 % LAB HEMETOLOGY METHOD 06/27/2024 12:51 PM [facility] Eosinophils Relative 3.0 % LAB HEMETOLOGY METHOD 06/27/2024 12:51 PM [facility] Basophils Relative 1.0 % LAB HEMETOLOGY METHOD 06/27/2024 12:51 PM [facility] Immature Granulocytes Relative 0.4 % LAB HEMETOLOGY METHOD 06/27/2024 12:51 PM [facility] Neutrophils Absolute 3.04 1.50 - 7.00 K/mcL LAB HEMETOLOGY METHOD 06/27/2024 12:51 PM [facility] Lymphocytes Absolute 1.21 1.00 - 5.00 K/mcL LAB HEMETOLOGY METHOD 06/27/2024 12:51 PM [facility] Monocytes Absolute 0.51 0.20 - 1.00 K/mcL LAB HEMETOLOGY METHOD 06/27/2024 12:51 PM [facility] Eosinophils Absolute 0.15 0.00 - 0.50 K/[facility] LAB HEMETOLOGY METHOD 06/27/2024 12:51 PM EST [facility] Basophils Absolute 0.05 0.00 - 0.20 K/[facility] LAB HEMETOLOGY METHOD 06/27/2024 12:51 PM EST [facility] Immature Granulocytes Absolute 0.02 0.00 - 0.03 K/[facility] LAB HEMETOLOGY METHOD 06/27/2024 12:51 PM EST [facility] Blood Venous blood specimen / Unknown Venipuncture / Unknown 06/27/2024 11:48 AM EST 06/27/2024 12:39 PM EST [facility] BLOOD ORDERABLE S Performing Organization Address [facility]/ZIP Co de Phone Number [facility] [address] [place] [address], * Magnesium (06/27/2024 11:48 AM EST) Magnesium 2.1 1.9 - 2.6 mg/dL LAB CHEMISTRY METHOD 06/27/2024 1:10 PM EST [facility] Blood Venous blood specimen / Unknown Venipuncture / Unknown 06/27/2024 11:48 AM EST 06/27/2024 12:39 PM EST Lorenzo Ferris DO LAB BLOOD ORDERABLE S [facility] [address] [place] [address], [place] [phone] * Basic metabolic panel (06/27/2024 11:48 AM EST) Sodium 137 133 - 145 mmol/L LAB CHEMISTRY METHOD 06/27/2024 1:10 PM EST [facility] Potassium 4.3 3.5 - 5.5 mmol/L LAB CHEMISTRY METHOD 06/27/2024 1:10 PM [facility] Chloride 104 96 - 110 mmol/L LAB CHEMISTRY METHOD 06/27/2024 1:10 PM [facility] CO2 29 21 - 32 mmol/L LAB CHEMISTRY METHOD 06/27/2024 1:10 PM [facility] Anion Gap 4 3 - 11 LAB CHEMISTRY METHOD 06/27/2024 1:10 PM [facility] Glucose 89 70 - 100 mg/dL LAB CHEMISTRY METHOD 06/27/2024 1:10 PM [facility] BUN 14 5 - 25 mg/dL LAB CHEMISTRY METHOD 06/27/2024 1:10 PM [facility] Creatinine 0.66 0.50 - 1.10 mg/dL LAB CHEMISTRY METHOD 06/27/2024 1:10 PM [facility] LAB eGFR 104 >=60 mL/min/1. 73m2 LAB CHEMISTRY METHOD 06/27/2024 1:10 PM [facility] LAB Comment:Calculation based on the??Chronic Kidney Disease Epidemiology Collaboration (CKD-EPI) equation refit??without adjustment for race. BUN/Creatinine Ratio 21.2 LAB CHEMISTRY METHOD 06/27/2024 1:10 PM [facility] Calcium 9.2 8.5 - 10.5 mg/dL LAB CHEMISTRY METHOD 06/27/2024 1:10 PM [facility] Blood Venous blood specimen / Unknown Venipuncture / Unknown 06/27/2024 11:48 AM EST 06/27/2024 12:39 PM EST Lorenzo Ferris DO LAB BLOOD ORDERABLE S [facility] [address] [place] [address], * ECG-Annotated (06/27/2024) Provider Onbase MD ECG ORDERABLES * ECG-Annotated (06/27/2024) Provider Onbase MD ECG ORDERABLES documented in this encounter Visit Diagnoses Not on filedocumented in this encounter Care Teams Shake Table Operator Relationship Specialty Start Date End Date Марина Mercado DO [address] [place] [address] PCP - General Pediatrics 12/22/16 documented as of this encounter
--- OUTSIDE RECORDS SUMMARY | 2024-07-24 17:33 | XMS_ITS | Clinical Summary ---
Author Organization [facility] Address [address] [place] [address] Phone Care Team Providers Care Regulatory Manager Name Role Phone Марина Mercado DO Primary Care Provider Allergies Active Allergy Reactions Criticality Noted Date Comments Acetaminophen Anaphylaxis,Other,Rash High 08/02/2006 Bee Venom Protein (Honey Bee) Anaphylaxis High 06/27/2024 Ciprofloxacin Rash 06/27/2024 Doxycycline GI intolerance,Other,Rash 7 Penicillins Anaphylaxis,Other,Rash High 08/02/2006 Sulfamethoxazole-Trimethopri m Angioedema,Swelling High 11/12/2020 Medications No known medications Encounters Date Type Department Care Team Description 06/27/2024 11:30 AM EST - 06/27/2024 9:40 PM EST Emergency [facility] Emergency [address] [place] [address] Discharge Disposition: Left Against Medical Advice from Last 3 Months Surgical History Surgery Date Site/Laterality Comments CHOLECYSTECTOMY 1987 PROCEDURE: HISTORICAL CHOLECYSTECTOMY TONSILLECTOMY 1975 PROCEDURE: HISTORICAL TONSILLECTOMY CHOLECYSTECTOMY PROCEDURE: DC LAPAROSCOPY SURG CHOLECYSTECTOMY Medical History Medical History Date Comments Morbid obesity with BMI of 4 5.0-49.9, adult ([facility]) 08/16/2006 DX:Morbid obesity with BMI o f 45.0-49.9, adult ([facility]) SUGAR positive 07/29/2017 DX:SUGAR positive Anxiety 09/01/2013 DX:Anxiety Asthma 03/21/2010 DX:Asthma Degenerative arthritis of lumbar spine 0 DX:Degenerative arthritis of lumbar spine Fatty liver 06/10/2017 DX:Fatty liver Herpes pharyngitis 04/14/2012 DX:Herpes pha ryngitis Hypothyroidism 03/16/2012 DX:Hypothyroidis m Lumbago 10/14/2006 DX:Lumbago; COMM ENT: [facility]- discharged 10/2006, having met goal Obstructive sleep apnea 03/27/2017 DX:Obstr uctive sleep apnea; COMMENT: [facility] Home Polysomnogram: Date 03/17/2017; AHI 26, Unclassified apneas 0; Obstructive apneas 5; Central apneas 1; Mixed apneas 0; hypopneas 158; average oxygen saturation 90% (lowest 75% with saturations <88% for 5% or more of study) Prediabetes 01/28/2016 DX:Prediabetes 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:Pulmonary nodular amyloid osis (HCC) Radiculitis, lumbosacral 05/12/2010 DX:Radi culitis, lumbosacral; COMMENT: 05/07-normal EMG Restrictive pattern present on pulmonary function testing 07/29/2017 DX:Restrictive pattern pres ent on pulmonary function testing Restrictive lung disease DX:Rest rictive lung disease Family History Medical History Relation Name Comments Asthma Daughter 1 CABG Father Diabetes Father Other cancer Father mouth cancer Lung disease Mother Depression Sister 1 depression Asthma Son 1 Relation Name Status Comments Brother Alive 2 brothers ages 40 and 30, healthy Daughter 1 Alive Daughter 2 Alive 1 daughter Vidya godoy, age 3, healthy, asthma Father mouth cancer Maternal Grandfather Maternal Grandmother Mother lung biposy Paternal Grandfather Paternal Grandmother Sister 1 Sister 2 Alive 1 sister age 38 , depression Son 1 Alive Son 2 Alive 1 son age 16, h ealthy, asthma Social History Tobacco Use Types Packs/Day Years Used Date Smoking Tobacco: Former Cigarettes Q uit: 12/15/2003 Smokeless Tobacco: Never Alcohol Use Standard Drinks/Week Comments No 0 (1 standard drink = 0.6 oz pur e alcohol) Sex and Gender Information Value Date Recorded Sex Assigned at Not on file Gender Identity Not on file Sexual Orientation Not on file Obstetrics History Last Filed Vital Signs Vital Sign Reading [...] Mass Index 30.11 06/27/2024 11:35 AM EST Plan of Treatment Health Maintenance Due Date Last Done Comments Breast Cancer Screening 1969 Pneumococcal Vaccine: Pediat rics (0 to 5 Years) and At-Risk Patients (6 to 64 Years) (1 of 2 - PCV) 1975 DTaP,Tdap,and Td Vaccines (1 - Tdap) 1988 Hepatitis A Vaccines (1 of 2 - Risk 2-dose series) 1988 Hepatitis B Vaccines (1 of 3 - 19+ 3-dose series) 1988 Cervical Cancer Screening: P ap Smear 1990 Zoster Vaccines (1 of 2) 2019 Cholesterol Screening (Lipid Panel) 05/31/2022 Colorectal Cancer Screening: Colonoscopy 05/31/2022 Depression Screening 05/31/2022 HIV Screening 05/31/2022 Hepatitis C Screening 05/31/2022 Medicare Annual Wellness Visit 05/31/2022 Social Influencers of Health Screening 05/31/2022 COVID-19 Vaccine ( - 2023-2 5 season) 2024 Influenza Vaccine (#1) 2024 HIB Vaccines Aged Out No longer eligi ble based on patient's age to complete this topic HPV Vaccines Aged Out No longer eligi ble based on patient's age to complete this topic IPV Vaccines Aged Out No longer eligi ble based on patient's age to complete this topic MMR Vaccines Aged Out No longer eligi ble based on patient's age to complete this topic Meningococcal ACWY Vaccine Aged Out N o longer eligible based on patient's age to complete this topic RSV Immunization Patients Un linda 20 months Aged Out No longer eligible b ased on patient's age to complete this topic Varicella Vaccines Aged Out No longer eligible based on patient's age to complete this topic Procedures Procedure Name Priority Date/Time Associated Diagnosis Comments ECG 12-LEAD STAT 06/27/2024 11:54 AM EST CBC WITH AUTO DIFFERENTIAL STAT 06/27/2024 11:48 AM EST MAGNESIUM STAT 06/27/2024 11:48 AM EST BASIC METABOLIC PANEL STAT 06/27/2024 11:48 AM EST CBC AND DIFFERENTIAL STAT 06/27/2024 11:48 AM EST ECG ANNOTATED 06/27/2024 ECG ANNOTATED 06/27/2024 from Last 3 Months Results * ECG 12 lead (06/27/2024 11:54 AM EST) Ventricular Rate ECG 61 BPM GEMUSE Atrial Rate 61 BPM GEMUSE P-R Interval 162 ms GEMUSE QRS Duration 92 ms GEMUSE Q-T Interval 410 ms GEMUSE QTc 412 ms GEMUSE P Wave [place] 34 degrees GEMUSE R [place] -2 degrees GEMUSE T [place] -6 degrees GEMUSE ECG Interpretation Normal sinus [...] AM EST) WBC 5.0 4.8 - 10.8 K/[facility] LAB HEMETOLOGY METHOD 06/27/2024 12:51 PM EST [facility] RBC 4.40 3.80 - 4.80 M/[facility] LAB HEMETOLOGY METHOD 06/27/2024 12:51 PM [facility] Hemoglobin 12.3 11.5 - 16.0 g/dL LAB HEMETOLOGY METHOD 06/27/2024 12:51 PM [facility] Hematocrit 39.1 35.0 - 47.0 % LAB HEMETOLOGY METHOD 06/27/2024 12:51 PM [facility] MCV 89.7 79.0 - 98.0 FL LAB HEMETOLOGY METHOD 06/27/2024 12:51 PM [facility] MCH 28.2 27.0 - 32.0 pcg LAB HEMETOLOGY METHOD 06/27/2024 12:51 PM [facility] MCHC 31.5(L) 32.0 - 37.0 g/dL LAB HEMETOLOGY METHOD 06/27/2024 12:51 PM [facility] RDW 12.7 11.0 - 15.0 % LAB HEMETOLOGY METHOD 06/27/2024 12:51 PM [facility] Platelets 268 130 - 400 K/mcL LAB HEMETOLOGY METHOD 06/27/2024 12:51 PM [facility] MPV 9.7 7.0 - 11.0 FL LAB HEMETOLOGY METHOD 06/27/2024 12:51 PM [facility] NRBC 0.0 <1.0 % LAB HEMETOLOGY METHOD 06/27/2024 12:51 PM [facility] NRBC Absolute 0.00 <0.10 K/mcL LAB HEMETOLOGY METHOD 06/27/2024 12:51 PM [facility] Neutrophils Relative 61.1 % LAB HEMETOLOGY METHOD 06/27/2024 12:51 PM [facility] Lymphocytes Relative 24.3 % LAB HEMETOLOGY METHOD 06/27/2024 12:51 PM [facility] Monocytes Relative 10.2 % LAB HEMETOLOGY METHOD 06/27/2024 12:51 PM [facility] Eosinophils Relative 3.0 % LAB HEMETOLOGY METHOD 06/27/2024 12:51 PM EST [facility] Basophils Relative 1.0 % LAB HEMETOLOGY METHOD 06/27/2024 12:51 PM [facility] Immature Granulocytes Relative 0.4 % LAB HEMETOLOGY METHOD 06/27/2024 12:51 PM EST [facility] Neutrophils Absolute 3.04 1.50 - 7.00 K/mcL LAB HEMETOLOGY METHOD 06/27/2024 12:51 PM [facility] Lymphocytes Absolute 1.21 1.00 - 5.00 K/mcL LAB HEMETOLOGY METHOD 06/27/2024 12:51 PM [facility] Monocytes Absolute 0.51 0.20 - 1.00 K/mcL LAB HEMETOLOGY METHOD 06/27/2024 12:51 PM EST [facility] Eosinophils Absolute 0.15 0.00 - 0.50 K/mcL LAB HEMETOLOGY METHOD 06/27/2024 12:51 PM [facility] Basophils Absolute 0.05 0.00 - 0.20 K/mcL LAB HEMETOLOGY METHOD 06/27/2024 12:51 PM [facility] Immature Granulocytes Absolute 0.02 0.00 - 0.03 K/mcL LAB HEMETOLOGY METHOD 06/27/2024 12:51 PM EST [facility] Blood Venous blood specimen / Unknown Venipuncture / Unknown 06/27/2024 11:48 AM EST 06/27/2024 12:39 PM EST Lorenzo Ferris DO LAB BLOOD ORDERABLE S [facility] [address] [place] [address], * Magnesium (06/27/2024 11:48 AM EST) Magnesium 2.1 1.9 - 2.6 mg/dL LAB CHEMISTRY METHOD 06/27/2024 1:10 PM [facility] Blood Venous blood specimen / Unknown Venipuncture / Unknown 06/27/2024 11:48 AM EST 06/27/2024 12:39 PM EST Lorenzo Ferris DO LAB BLOOD ORDERABLE S [facility] [address] [place] [address], * Basic metabolic panel (06/27/2024 11:48 AM EST) Pathologist [facility] Sodium 137 133 - 145 mmol/L LAB CHEMISTRY METHOD 06/27/2024 1:10 PM [facility] Potassium 4.3 3.5 - 5.5 mmol/L LAB CHEMISTRY METHOD 06/27/2024 1:10 PM [facility] Chloride 104 96 - 110 mmol/L LAB CHEMISTRY METHOD 06/27/2024 1:10 PM [facility] CO2 29 21 - 32 mmol/L LAB CHEMISTRY METHOD 06/27/2024 1:10 PM [facility] Anion Gap 4 3 - 11 LAB CHEMISTRY METHOD 06/27/2024 1:10 PM [facility] Glucose 89 70 - 100 mg/dL LAB CHEMISTRY METHOD 06/27/2024 1:10 PM [facility] BUN 14 5 - 25 mg/dL LAB CHEMISTRY METHOD 06/27/2024 1:10 PM [facility] Creatinine 0.66 0.50 - 1.10 mg/dL LAB CHEMISTRY METHOD 06/27/2024 1:10 PM [facility] eGFR 104 >=60 mL/min/1. 73m2 LAB CHEMISTRY METHOD 06/27/2024 1:10 PM [facility] Comment:Calculation based on the??Chronic Kidney Disease Epidemiology Collaboration (CKD-EPI) equation refit??without adjustment for race. BUN/Creatinine Ratio 21.2 LAB CHEMISTRY METHOD 06/27/2024 1:10 PM EST [facility] Calcium 9.2 8.5 - 10.5 mg/dL LAB CHEMISTRY METHOD 06/27/2024 1:10 PM EST [facility] Blood Venous blood specimen / Unknown Venipuncture / Unknown 06/27/2024 11:48 AM EST 06/27/2024 12:39 PM EST Lorenzo Ferris DO LAB BLOOD ORDERABLE S [facility] [address] [place] [address], * ECG-Annotated (06/27/2024) Only the most recent of2 resultswithin the time period is included. Provider Onbase MD ECG ORDERABLES from Last 3 Months Care Teams Regulatory Manager Relationship Specialty Start Date End Date Марина Mercado DO [facility] [place], [place] PCP - General Pediatrics 12/22/16
== END 2024-07-24 12:53 | disposition home or self-care (01) ==
LOC: HO.HOSX 12:52
DX: M25.562 Pain in left knee (principal); M17.0 Bilateral primary osteoarthritis of knee
CPT/HCPCS: 73562; 99212

== ENCOUNTER 2024-07-24 14:41 | Outpatient (AMB) | payer OTHER, SELFPAY ==
--- NOTE | 2024-07-24 14:48 | A.OFFVIS_ITS ---
Vital Signs 07/24/24 14:49 Height 5 ft 3 in Weight 165 lb BMI 29.2 Intake Visit Reasons: NewProb: B/L knee pain, left worse DOI: 06/25/24 Intake Note: Genoveva is a 54 year old female who presents today for a new problem visit with complaints of bilateral knee pain, DOI: 06/25/24. Patient states is unsure if she fell, all she recalls is walking and hitting the walk. She states she has a gait problem and usually goes towards her left. She has been icing it and taking Aleve with minimal relief. She has difficulty using stairs. Allergies acetaminophen [From Tylenol] Allergy (Verified 07/24/24 14:50) Anaphylaxis levofloxacin [From Levaquin] Allergy (Verified 07/24/24 14:50) Anaphylaxis Penicillins [PCN] Allergy (Verified 07/24/24 14:50) Anaphylaxis sulfamethoxazole [From Bactrim] Allergy (Verified 07/24/24 14:50) Anaphylaxis trimethoprim [From Bactrim] Allergy (Verified 07/24/24 14:50) Anaphylaxis HPI HPI NewProb: B/L knee pain, left worse DOI: 06/25/24: Details: Genoveva is a 54 year old female who presents today for a new problem visit with complaints of bilateral knee pain, DOI: 06/25/24. Patient states is unsure if she fell, all she recalls is walking and hitting the walk. She states she has a gait problem and usually goes towards her left. She has been icing it and taking Aleve with minimal relief. She has difficulty using stairs. No other acute complaints or concerns at this time. [facility] Medical History Fall Social History (Updated 07/14/24 @ 15:12 by VERÓNICA Jimenez) Alcohol intake: never Patient Tobacco Use Status: Never used Tobacco Current occupational status: disabled Review of Systems Const All systems reviewed & are unremarkable except as noted in HPI and below Physical Exam Vital Signs: BMI result Body Mass Index 29.2 Extrem Other: Patient's bilateral knees normal to inspection No erythema, ecchymosis, edema noted No lacerations, abrasions, open areas No evidence of infection Patient reports mild tenderness to palpation of the bilateral medial joint lines of the knees No tenderness to palpation of the lateral joint lines, patellar tendons, quad tendons, or posterior knees Negative Lazaro's No ligamentous laxity noted Distal sensation intact Capillary refill brisk Results Reviewed Results Reviewed: X-rays obtained in the office today and independently reviewed by me, Lamont Marin PA-C, demonstrate [id number] degenerative changes of the bilateral knees, worse in the medial compartment bilaterally. No fracture or acute bony abnormality noted. Assessment & Plan Assessment & Plan (1) Arthritis of both knees: Code(s): M17.0 - Bilateral primary osteoarthritis of knee Category: Medical Plan 1. Osteoarthritis of bilateral knees Patient is educated about this condition Patient is educated about the treatment options available After discussion, patient would like to proceed with physical therapy for range of motion and strengthening of the bilateral knees in order to avoid any invasive intervention if possible Patient was referred to physical therapy for exactly this Patient is advised that if 6-8 weeks after beginning physical therapy she is not noticing any relief, she should call us for discussion of further treatment options if she is interested Patient was amenable to this plan Patient will follow-up as needed with any acute concerns Orders: Orders XR knee LT 3V Today M25.562 - Pain in left knee XR knee RT 1V Today M25.561 - Pain in right knee PT Evaluation and Treatment Today M17.0 - Bilateral primary osteoarthritis of knee Coding Level of Care Code Est Pt Level 3 (96917) Diagnoses Arthritis of both knees M17.0
[2024-07-24 14:49] VITALS: BMI 29.2
--- OUTSIDE RECORDS SUMMARY | 2024-07-24 19:04 | XMS_ITS | Clinical Summary ---
Author Organization [facility] Address [address] [facility] [address] [place] [address] Phone Care Team Providers Care Cobol Engineer Name Role Phone Марина Mercado DO Primary Care Provider [phone] Allergies Active Allergy Reactions Criticality Noted Date [...] [facility] [address] [phone] Pro Mari MD [address] [phone] Health Maintenance Due Date Last [...] Sigmoidoscopy 2018 Influenza Vaccine (#1) 2024 Insurance [facility] ([id number]) [facility] ([id number]) Care Teams Cobol Engineer Relationship Specialty Start Date End Date Марина Mercado DO [address] [place] [phone] PCP - General Pediatrics 01/13/24
--- OUTSIDE RECORDS SUMMARY | 2024-07-24 19:04 | XMS_ITS | Encounter Summary ---
Author Organization [facility] Address [address] [place] [address] Care Team Providers Care Forest Pathologist Name Role Phone Марина Mercado MD Primary Care Provider Reason for Visit * Reason Comments Results Request Encounter Details Date Type Department Care Team (Late st Contact Info) Description 07/21/2024 Telephone [facility] Rheumatology [address] [phone] Irina Yost MD [address] [place] [phone] Results Request Social History Tobacco Use [...] on filedocumented in this encounter Care Teams Forest Pathologist Relationship Specialty Start Date End Date Марина Mercado MD [address] [place] [address] PCP - General Pediatric, General 05/14/22 documented as of this encounter
--- OUTSIDE RECORDS SUMMARY | 2024-07-24 19:04 | XMS_ITS | Clinical Summary ---
Author Organization [facility] Address [address] [place] [address] Care Team Providers Care Vending Service Technician Name Role Phone Марина Mercado MD Primary [...] REST SEEK IMMEDIATE MEDICAL ATTENTION Active nystatin [id number] UNIT/GM powder APPLY TOPICALLY TWO TIMES A [...] Type Department Care Team Description 07/21/2024 Telephone [facility] Medical [facility] Rheumatology [address] [place] [phone] Irina Yost MD Results Request from [...] ( - 2023- season) 2024 Care Teams Vending Service Technician Relationship Specialty Start Date End Date Марина Mercado MD [facility] [place] [address] PCP - General Pediatric, General 05/14/22
--- OUTSIDE RECORDS SUMMARY | 2024-07-24 19:05 | XMS_ITS | Encounter Summary ---
Author Organization [facility] Address [address] [place] [address] Care Team Providers Care Principal Research Economist Name Role Phone Марина Mercado Primary Care [...] EST - 06/27/2024 9:40 PM EST Emergency [facility] Emergency [address] [place] [address] Discharge Disposition: Left Against Medical [...] GEMUSE QTc 412 ms GEMUSE P Wave [place] 34 degrees GEMUSE R [place] -2 degrees GEMUSE T [place] -6 degrees GEMUSE ECG Interpretation Normal sinus [...] K/mcL LAB HEMETOLOGY METHOD 06/27/2024 12:51 PM [facility] RBC 4.40 3.80 - 4.80 M/mcL LAB HEMETOLOGY METHOD 06/27/2024 12:51 PM [facility] Hemoglobin 12.3 11.5 - 16.0 g/dL LAB HEMETOLOGY METHOD 06/27/2024 12:51 PM [facility] Hematocrit 39.1 35.0 - 47.0 % LAB HEMETOLOGY METHOD 06/27/2024 12:51 PM [facility] MCV 89.7 79.0 - 98.0 FL LAB HEMETOLOGY METHOD 06/27/2024 12:51 PM [facility] MCH 28.2 27.0 - 32.0 pcg LAB HEMETOLOGY METHOD 06/27/2024 12:51 PM [facility] MCHC 31.5(L) 32.0 - 37.0 g/dL LAB HEMETOLOGY METHOD 06/27/2024 12:51 PM [facility] RDW 12.7 11.0 - 15.0 % LAB HEMETOLOGY METHOD 06/27/2024 12:51 PM [facility] Platelets 268 130 - 400 K/mcL LAB HEMETOLOGY METHOD 06/27/2024 12:51 PM [facility] MPV 9.7 7.0 - 11.0 FL LAB HEMETOLOGY METHOD 06/27/2024 12:51 PM [facility] NRBC 0.0 <1.0 % LAB HEMETOLOGY METHOD 06/27/2024 12:51 PM [facility] NRBC Absolute 0.00 <0.10 K/mcL LAB HEMETOLOGY METHOD 06/27/2024 12:51 PM [facility] Neutrophils Relative 61.1 % LAB HEMETOLOGY METHOD 06/27/2024 12:51 PM [facility] Lymphocytes Relative 24.3 % LAB HEMETOLOGY METHOD 06/27/2024 12:51 PM [facility] Monocytes Relative 10.2 % LAB HEMETOLOGY METHOD 06/27/2024 12:51 PM [facility] Eosinophils Relative 3.0 % LAB HEMETOLOGY METHOD 06/27/2024 12:51 PM [facility] Basophils Relative 1.0 % LAB HEMETOLOGY METHOD 06/27/2024 12:51 PM [facility] Immature Granulocytes Relative 0.4 % LAB HEMETOLOGY METHOD 06/27/2024 12:51 PM [facility] Neutrophils Absolute 3.04 1.50 - 7.00 K/mcL LAB HEMETOLOGY METHOD 06/27/2024 12:51 PM [facility] Lymphocytes Absolute 1.21 1.00 - 5.00 K/mcL LAB HEMETOLOGY METHOD 06/27/2024 12:51 PM [facility] Monocytes Absolute 0.51 0.20 - 1.00 K/mcL LAB HEMETOLOGY METHOD 06/27/2024 12:51 PM [facility] Eosinophils Absolute 0.15 0.00 - 0.50 K/[facility] LAB HEMETOLOGY METHOD 06/27/2024 12:51 PM EST [facility] Basophils Absolute 0.05 0.00 - 0.20 K/[facility] LAB HEMETOLOGY METHOD 06/27/2024 12:51 PM EST [facility] Immature Granulocytes Absolute 0.02 0.00 - 0.03 K/[facility] LAB HEMETOLOGY METHOD 06/27/2024 12:51 PM EST [facility] Blood Venous blood specimen / Unknown Venipuncture / Unknown 06/27/2024 11:48 AM EST 06/27/2024 12:39 PM EST [facility] B[facility] ORDERABLE S Performing Organization Address [facility]/ZIP Co de Phone Number [facility] [address] [place] [address], * Magnesium (06/27/2024 11:48 AM EST) Magnesium 2.1 1.9 - 2.6 mg/dL LAB CHEMISTRY METHOD 06/27/2024 1:10 PM EST [facility] Blood Venous blood specimen / Unknown Venipuncture / Unknown 06/27/2024 11:48 AM EST 06/27/2024 12:39 PM EST Lorenzo Ferris DO LAB BLOOD ORDERABLE S [facility] [address] [place] [address], [place] [phone] * Basic metabolic panel (06/27/2024 11:48 AM EST) Sodium 137 133 - 145 mmol/L LAB CHEMISTRY METHOD 06/27/2024 1:10 PM EST [facility] Potassium 4.3 3.5 - 5.5 mmol/L LAB CHEMISTRY METHOD 06/27/2024 1:10 PM [facility] Chloride 104 96 - 110 mmol/L LAB CHEMISTRY METHOD 06/27/2024 1:10 PM [facility] CO2 29 21 - 32 mmol/L LAB CHEMISTRY METHOD 06/27/2024 1:10 PM [facility] Anion Gap 4 3 - 11 LAB CHEMISTRY METHOD 06/27/2024 1:10 PM [facility] Glucose 89 70 - 100 mg/dL LAB CHEMISTRY METHOD 06/27/2024 1:10 PM [facility] BUN 14 5 - 25 mg/dL LAB CHEMISTRY METHOD 06/27/2024 1:10 PM [facility] Creatinine 0.66 0.50 - 1.10 mg/dL LAB CHEMISTRY METHOD 06/27/2024 1:10 PM [facility] eGFR 104 >=60 mL/min/1. 73m2 LAB CHEMISTRY METHOD 06/27/2024 1:10 PM [facility] Comment:Calculation based on the??Chronic Kidney Disease Epidemiology Collaboration (CKD-EPI) equation refit??without adjustment for race. BUN/Creatinine Ratio 21.2 LAB CHEMISTRY METHOD 06/27/2024 1:10 PM [facility] Calcium 9.2 8.5 - 10.5 mg/dL LAB CHEMISTRY METHOD 06/27/2024 1:10 PM [facility] Blood Venous blood specimen / Unknown Venipuncture / Unknown 06/27/2024 11:48 AM EST 06/27/2024 12:39 PM EST Lorenzo Ferris DO LAB BLOOD ORDERABLE S [facility] [address] [place] [address], * ECG-Annotated (06/27/2024) Provider Onbase MD ECG ORDERABLES * ECG-Annotated (06/27/2024) Provider Onbase MD ECG ORDERABLES documented in this encounter Visit Diagnoses Not on filedocumented in this encounter Care Teams Principal Research Economist Relationship Specialty Start Date End Date Марина Mercado DO [address] [place] [address] PCP - General Pediatrics 12/22/16 documented as of this encounter
--- OUTSIDE RECORDS SUMMARY | 2024-07-24 19:05 | XMS_ITS | Clinical Summary ---
Author Organization [facility] Address [address] [place] [address] Phone Care Team Providers Care Event Sales Manager Name Role Phone Марина Mercado DO [...] EST - 06/27/2024 9:[address] [facility] Emergency [address] [place] [address] Discharge Disposition: Left Against Medical Advice from Last 3 Months Surgical History Surgery Date Site/Laterality Comments CHOLECYSTECTOMY 1987 PROCEDURE: HISTORICAL CHOLECYSTECTOMY TONSILLECTOMY 1975 PROCEDURE: HISTORICAL TONSILLECTOMY CHOLECYSTECTOMY PROCEDURE: [place] LAPAROSCOPY SURG CHOLECYSTECTOMY Medical History Medical History Date Comments Morbid obesity with BMI of 4 5.0-49.9, adult ([facility]) 08/16/2006 DX:Morbid obesity with BMI o f 45.0-49.9, adult ([facility]) SUGAR positive 07/29/2017 DX:SUGAR positive Anxiety 09/01/2013 DX:Anxiety Asthma 03/21/2010 DX:Asthma Degenerative arthritis of lumbar spine 0 DX:Degenerative arthritis of lumbar spine Fatty liver 06/10/2017 DX:Fatty liver Herpes pharyngitis 04/14/2012 DX:Herpes pha ryngitis Hypothyroidism 03/16/2012 DX:Hypothyroidis m Lumbago 10/14/2006 DX:Lumbago; COMM ENT: [facility] PT- discharged 10/2006, having met goal Obstructive sleep apnea 03/27/2017 DX:Obstr uctive sleep apnea; COMMENT: [facility] Home Polysomnogram: Date 03/17/2017; AHI 26, [...] GEMUSE QTc 412 ms GEMUSE P Wave [place] 34 degrees GEMUSE R [place] -2 degrees GEMUSE T [place] -6 degrees GEMUSE ECG Interpretation Normal sinus [...] AM EST) WBC 5.0 4.8 - 10.8 K/[facility] LAB HEMETOLOGY METHOD 06/27/2024 12:51 PM EST [facility] RBC 4.40 3.80 - 4.80 M/[facility] LAB HEMETOLOGY METHOD 06/27/2024 12:51 PM [facility] Hemoglobin 12.3 11.5 - 16.0 g/dL LAB HEMETOLOGY METHOD 06/27/2024 12:51 PM [facility] Hematocrit 39.1 35.0 - 47.0 % LAB HEMETOLOGY METHOD 06/27/2024 12:51 PM [facility] MCV 89.7 79.0 - 98.0 FL LAB HEMETOLOGY METHOD 06/27/2024 12:51 PM [facility] MCH 28.2 27.0 - 32.0 pcg LAB HEMETOLOGY METHOD 06/27/2024 12:51 PM [facility] MCHC 31.5(L) 32.0 - 37.0 g/dL LAB HEMETOLOGY METHOD 06/27/2024 12:51 PM [facility] RDW 12.7 11.0 - 15.0 % LAB HEMETOLOGY METHOD 06/27/2024 12:51 PM [facility] Platelets 268 130 - 400 K/mcL LAB HEMETOLOGY METHOD 06/27/2024 12:51 PM [facility] MPV 9.7 7.0 - 11.0 FL LAB HEMETOLOGY METHOD 06/27/2024 12:51 PM [facility] NRBC 0.0 <1.0 % LAB HEMETOLOGY METHOD 06/27/2024 12:51 PM [facility] NRBC Absolute 0.00 <0.10 K/mcL LAB HEMETOLOGY METHOD 06/27/2024 12:51 PM [facility] Neutrophils Relative 61.1 % LAB HEMETOLOGY METHOD 06/27/2024 12:51 PM [facility] Lymphocytes Relative 24.3 % LAB HEMETOLOGY METHOD 06/27/2024 12:51 PM [facility] Monocytes Relative 10.2 % LAB HEMETOLOGY METHOD 06/27/2024 12:51 PM [facility] Eosinophils Relative 3.0 % LAB HEMETOLOGY METHOD 06/27/2024 12:51 PM EST [facility] Basophils Relative 1.0 % LAB HEMETOLOGY METHOD 06/27/2024 12:51 PM [facility] Immature Granulocytes Relative 0.4 % LAB HEMETOLOGY METHOD 06/27/2024 12:51 PM EST [facility] Neutrophils Absolute 3.04 1.50 - 7.00 K/mcL LAB HEMETOLOGY METHOD 06/27/2024 12:51 PM [facility] Lymphocytes Absolute 1.21 1.00 - 5.00 K/mcL LAB HEMETOLOGY METHOD 06/27/2024 12:51 PM [facility] Monocytes Absolute 0.51 0.20 - 1.00 K/mcL LAB HEMETOLOGY METHOD 06/27/2024 12:51 PM EST [facility] Eosinophils Absolute 0.15 0.00 - 0.50 K/mcL LAB HEMETOLOGY METHOD 06/27/2024 12:51 PM [facility] Basophils Absolute 0.05 0.00 - 0.20 K/mcL LAB HEMETOLOGY METHOD 06/27/2024 12:51 PM [facility] Immature Granulocytes Absolute 0.02 0.00 - 0.03 K/mcL LAB HEMETOLOGY METHOD 06/27/2024 12:51 PM EST [facility] Blood Venous blood specimen / Unknown Venipuncture / Unknown 06/27/2024 11:48 AM EST 06/27/2024 12:39 PM EST Lorenzo Ferris DO LAB BLOOD ORDERABLE S [facility] [address] [place] [address], * Magnesium (06/27/2024 11:48 AM EST) Magnesium 2.1 1.9 - 2.6 mg/dL LAB CHEMISTRY METHOD 06/27/2024 1:10 PM [facility] Blood Venous blood specimen / Unknown Venipuncture / Unknown 06/27/2024 11:48 AM EST 06/27/2024 12:39 PM EST Lorenzo Ferris DO LAB BLOOD ORDERABLE S [facility] [address] [place] [address], * Basic metabolic panel (06/27/2024 11:48 AM EST) Pathologist [facility] Sodium 137 133 - 145 mmol/L LAB CHEMISTRY METHOD 06/27/2024 1:10 PM [facility] Potassium 4.3 3.5 - 5.5 mmol/L LAB CHEMISTRY METHOD 06/27/2024 1:10 PM [facility] Chloride 104 96 - 110 mmol/L LAB CHEMISTRY METHOD 06/27/2024 1:10 PM [facility] CO2 29 21 - 32 mmol/L LAB CHEMISTRY METHOD 06/27/2024 1:10 PM [facility] Anion Gap 4 3 - 11 LAB CHEMISTRY METHOD 06/27/2024 1:10 PM [facility] Glucose 89 70 - 100 mg/dL LAB CHEMISTRY METHOD 06/27/2024 1:10 PM [facility] BUN 14 5 - 25 mg/dL LAB CHEMISTRY METHOD 06/27/2024 1:10 PM [facility] Creatinine 0.66 0.50 - 1.10 mg/dL LAB CHEMISTRY METHOD 06/27/2024 1:10 PM [facility] eGFR 104 >=60 mL/min/1. 73m2 LAB CHEMISTRY METHOD 06/27/2024 1:10 PM [facility] Comment:Calculation based on the??Chronic Kidney Disease Epidemiology Collaboration (CKD-EPI) equation refit??without adjustment for race. BUN/Creatinine Ratio 21.2 LAB CHEMISTRY METHOD 06/27/2024 1:10 PM EST [facility] Calcium 9.2 8.5 - 10.5 mg/dL LAB CHEMISTRY METHOD 06/27/2024 1:10 PM EST [facility] Blood Venous blood specimen / Unknown Venipuncture / Unknown 06/27/2024 11:48 AM EST 06/27/2024 12:39 PM EST Lorenzo Ferris DO LAB BLOOD ORDERABLE S [facility] [address] [place] [address], * ECG-Annotated (06/27/2024) Only the most recent of2 resultswithin the time period is included. Provider Onbase MD ECG ORDERABLES from Last 3 Months Care Teams Event Sales Manager Relationship Specialty Start Date End Date Марина Mercado DO [facility] [place], [place] PCP - General Pediatrics 12/22/16
== END 2024-07-24 15:10 | disposition home or self-care (01) ==
DX: M17.0 Bilateral primary osteoarthritis of knee (principal)
CPT/HCPCS: 99213

== ENCOUNTER → 2024-07-24 14:43 | Outpatient (BNV) | payer OTHER, SELFPAY | PROVIDERS: Visit Provider Radiology Diagnostic Radiology | DX: M17.12 Unilateral primary osteoarthritis, left knee (principal) | CPT/HCPCS: 73562 ==

== ENCOUNTER → 2024-07-26 10:25 | Outpatient (BNVA) | payer OTHER, SELFPAY | PROVIDERS: Visit Provider Orthopaedic Surgery | DX: M79.645 Pain in left finger(s) (principal); M18.11 Unilateral primary osteoarthritis of first carpometacarpal joint, right hand; M18.12 Unilateral primary osteoarthritis of first carpometacarpal joint, left hand; Z91.81 History of falling | CPT/HCPCS: 99212 ==

== ENCOUNTER 2024-08-23 14:24 | Outpatient (AMB) | payer OTHER, SELFPAY ==
--- NOTE | 2024-08-23 14:28 | MHC.OFFVIS ---
Vital Signs 08/23/24 14:45 Height 5 ft 3 in Weight 165 lb BMI 29.2 Intake Visit Reasons: OV- Left wrist OA, 4 WK f/u Intake Note: Mildered 54 yr old female presents today for a follow up visit for her left thumb O.A pain and radial sided wrist pain following a fall on 06/25/2024. States since her last visit, she is wearing her comfort cool brace with activities but still has pain when she removes brace, demonstrating the pain to be about the base of the thumb and including the radial aspect of the wrist about the 1st dorsal compartment.. Allergies acetaminophen [From Tylenol] Allergy (Verified 08/23/24 14:45) Anaphylaxis levofloxacin [From Levaquin] Allergy (Verified 08/23/24 14:45) Anaphylaxis Penicillins [PCN] Allergy (Verified 08/23/24 14:45) Anaphylaxis sulfamethoxazole [From Bactrim] Allergy (Verified 08/23/24 14:45) Anaphylaxis trimethoprim [From Bactrim] Allergy (Verified 08/23/24 14:45) Anaphylaxis HPI HPI OV- Left wrist OA, 4 WK f/u: Details: Genoveva is a 54 year old right hand dominant woman who returns to asses her left snuffbox tenderness, S/P fall, DOI: 06/25/24. She complains primarily of pain at the base of her left thumb & her wrist. She says her right side is not as painful anymore. Her pain improves when she is wearing her brace, but worsens when her brace is removed. She says she is disabled due to lung disease and does not work. [facility] Medical History Fall Social History (Updated 07/26/24 @ 10:31 by VERÓNICA Garcia) Alcohol intake: never Patient Tobacco Use Status: Never used Tobacco Current occupational status: disabled Current occupation: rt hand Physical Exam Extrem Other: Evaluation of Left Upper Extremity: The patient is alert, oriented, and in no acute distress Neuro: Median, Ulnar, Radial nerves motor and sensory intact Vascular: Cap refill brisk ROM: She can make a fist and extend all her digits Skin: No lacerations or abrasions. General: No Ecchymosis. No Erythema or evidence of infection. Left wrist Using a 1-10 pain scale: 3 over the 1st dorsal compartment at the radial styloid Negative Soledad test 3 over the snuffbox 4 tenderness over the scaphoid tubercle 4.5 over the basal joint No tenderness over the MCP or IP joints of the thumb Radiographs: 3 views of the left wrist from 07/14/24 were reviewed by me today in clinic. They show no fractures or dislocations. There is early basal joint arthritis with joint space narrowing and subluxation CT/CT wrist LT wo IV con FINDINGS: Cortical irregularity at the radial aspect of the distal epiphysis of the radius. Cortical irregularity in the radial aspect distal scaphoid. Cortical irregularity/disruption in the volar aspect of the lunate. Joint space narrowing, radiocarpal. The scapholunate joint space is normal. The included metacarpal bones are intact. No gross fluid collections or masses. IMPRESSION: Bone contusions/nondisplaced impacted fractures distal scaphoid probable distal epiphysis of the radius and volar aspect of the lunate. Consider noncontrast MRI wrist for better evaluation. Dictated By: Hoang Hardwick MD 07/24/24 Dr. Meehan impression: No clear evidence of fracture, completely non-tender at distal radius, lunate, and scaphoid tubercle Assessment & Plan Assessment & Plan (1) Pain of left thumb: Comment: CMC J Code(s): M79.645 - Pain in left finger(s) Category: Medical (2) Arthritis of carpometacarpal (CMC) joint of left thumb: Code(s): M18.12 - Unilateral primary osteoarthritis of first carpometacarpal joint, left hand Category: Medical (3) Arthritis of carpometacarpal (CMC) joint of right thumb: Code(s): M18.11 - Unilateral primary osteoarthritis of first carpometacarpal joint, right hand Category: Medical Plan Assessment & Plan: 1. Left basal joint OA, exacerbated S/P fall Some tenderness over the 1st dorsal compartment, but equivocal Soledad test today This is her chief complaint 2. Left mild snuffbox tenderness, S/P fall Radiographs and CT scan negative for waist or proximal scaphoid fracture No evidence of fractures seen on radiographs 3. Right basal joint OA, exacerbated S/P fall DOI: ~06/25/24 following a fall onto outstretched hands I educated her about these conditions. It is possible that her pain could be coming from either exacerbated left basal joint arthritis or perhaps some mild left de Quervain tenosynovitis. I talked to her about the importance of activity modification. He has a comfort cool splint at home. I did talk to her about the risks and the benefits of steroid injections, including in being able to help us to differentiate between these 2 conditions. She is adamant that she does not want an injection. She wants to give it some more time. If her symptoms are not improving and she would like to consider an injection she knows she just needs to call to be seen. She will follow up prn Scribed for Trudy Meehan MD by Librado Meyers, electromedical service engineer, on 08/23/24 at 2:45 PM, EST. Coding Level of Care Code Est Pt Level 4 (05719) Diagnoses Pain of left thumb M79.645 Arthritis of carpometacarpal (CMC) joint of left thumb M18.12 Arthritis of carpometacarpal (CMC) joint of right thumb M18.11
[2024-08-23 14:45] VITALS: BMI 29.2
--- OUTSIDE RECORDS SUMMARY | 2024-08-23 17:48 | XMS_ITS | Clinical Summary ---
Author Organization [facility] Address [address] [place] [address] Phone Care Team Providers Care School Custodian Name Role Phone Марина Mercado DO Primary Care Provider Allergies Active Allergy Reactions Criticality Noted Date Comments Acetaminophen Anaphylaxis,Other,Rash High 08/02/2006 Bee Venom Protein (Honey Bee) Anaphylaxis High 06/27/2024 Ciprofloxacin Rash 06/27/2024 Doxycycline GI intolerance,Other,Rash 7 Penicillins Anaphylaxis,Other,Rash High 08/02/2006 Sulfamethoxazole-Trimethopri m Angioedema,Swelling High 11/12/2020 Medications No known medications Encounters Date Type Department Care Team Description 08/18/2024 Telephone [facility] [address] [address] Ira Saez NP Scheduling Recall 06/27/2024 11:30 AM EST - 06/27/2024 9:40 PM EST Emergency [facility] Emergency [address] [place] [address] Discharge Disposition: Left Against Medical Advice from Last 3 Months Surgical History Surgery Date Site/Laterality Comments CHOLECYSTECTOMY 1987 PROCEDURE: HISTORICAL CHOLECYSTECTOMY TONSILLECTOMY 1975 PROCEDURE: HISTORICAL TONSILLECTOMY CHOLECYSTECTOMY PROCEDURE: GA LAPAROSCOPY SURG CHOLECYSTECTOMY Medical History Medical History Date Comments Morbid obesity with BMI of 4 5.0-49.9, adult ([facility]) 08/16/2006 DX:Morbid obesity with BMI o f 45.0-49.9, adult ([facility]) SUGAR positive 07/29/2017 DX:SUGAR positive Anxiety 09/01/2013 DX:Anxiety Asthma 03/21/2010 DX:Asthma Degenerative arthritis of lumbar spine 0 DX:Degenerative arthritis of lumbar spine Fatty liver 06/10/2017 DX:Fatty liver Herpes pharyngitis 04/14/2012 DX:Herpes pha ryngitis Hypothyroidism 03/16/2012 DX:Hypothyroidis m Lumbago 10/14/2006 DX:Lumbago; COMM ENT: Amir[facility] PT- discharged 10/2006, having met goal Obstructive sleep apnea 03/27/2017 DX:Obstr uctive sleep apnea; COMMENT: [facility] Home Polysomnogram: Date 03/17/2017; AHI 26, Unclassified apneas 0; Obstructive apneas 5; Central apneas 1; Mixed apneas 0; hypopneas 158; average oxygen saturation 90% (lowest 75% with saturations <88% for 5% or more of study) Prediabetes 01/28/2016 DX:Prediabetes 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:Pulmonary nodular amyloid osis (HCC) Radiculitis, [...] at Not on file Legal Sex Female 6:16 AM EST Gender Identity Not on file Sexual Orientation [...] Last Done Comments Breast Cancer Screening 1969 DTaP,Tdap,and Td Vaccines (1 - Tdap) 1988 Hepatitis A Vaccines (1 of 2 - Risk 2-dose series) 1988 Hepatitis B Vaccines (1 of 3 - 19+ 3-dose series) 1988 Pneumococcal Vaccine: 50+ Ye ars (1 of 2 - PCV) 1988 Pneumococcal Vaccine: Pediat rics (0 to 5 Years) and At-Risk Patients (6 to 64 Years) (1 of 2 - PCV) 1988 Cervical Cancer Screening: P ap Smear 1990 Zoster Vaccines (1 of 2) 2019 Cholesterol Screening (Lipid Panel) 05/31/2022 Colorectal Cancer Screening: Colonoscopy 05/31/2022 Depression Screening 05/31/2022 HIV Screening 05/31/2022 Hepatitis C Screening 05/31/2022 Medicare Annual Wellness Visit 05/31/2022 Social Influencers of Health Screening 05/31/2022 COVID-19 Vaccine (2023-2 5 season) 2024 Influenza Vaccine (#1) 2024 [...] patient's age to complete this topic Meningococcal B Vacine Aged Out No lo nger eligible based on patient's age to complete [...] GEMUSE QTc 412 ms GEMUSE P Wave Bosworth 34 degrees GEMUSE R [place]worth -2 degrees GEMUSE T Bosworth -6 degrees GEMUSE ECG Interpretation Normal sinus rhythm Low voltage QRS Abnormal ECG When compared with ECG of 11-MAR-2023 13:08, No significant change was found Confirmed by David CHASE JAMES ([id number]) on 06/28/2024 8:48:50 AM GEMUSE 06/27/2024 11:5 4 AM EST 06/28/2024 8:48 AM EST us Lorenzo Ferris DO ECG ORDERABLES Final Resul t GEMUSE * (ABNORMAL) CBC auto differential (06/27/2024 11:48 AM EST) [facility] WBC 5.0 4.8 - 10.8 K/mcL LAB HEMETOLOGY METHOD 06/27/2024 12:51 PM [facility] RBC 4.40 3.80 - 4.80 M/mcL LAB HEMETOLOGY METHOD 06/27/2024 12:51 PM [facility] Hemoglobin 12.3 11.5 - 16.0 g/dL LAB HEMETOLOGY METHOD 06/27/2024 12:51 PM [facility] Hematocrit 39.1 35.0 - 47.0 % LAB HEMETOLOGY METHOD 06/27/2024 12:51 PM [facility] MCV 89.7 79.0 - 98.0 FL LAB HEMETOLOGY METHOD 06/27/2024 12:51 PM [facility] MCH 28.2 27.0 - 32.0 pcg LAB HEMETOLOGY METHOD 06/27/2024 12:51 PM [facility] MCHC 31.5(L) 32.0 - 37.0 g/dL LAB HEMETOLOGY METHOD 06/27/2024 12:51 PM [facility] RDW 12.7 11.0 - 15.0 % LAB HEMETOLOGY METHOD 06/27/2024 12:51 PM [facility] Platelets 268 130 - 400 K/mcL LAB HEMETOLOGY METHOD 06/27/2024 12:51 PM [facility] MPV 9.7 7.0 - 11.0 FL LAB HEMETOLOGY METHOD 06/27/2024 12:51 PM [facility] NRBC 0.0 <1.0 % LAB HEMETOLOGY METHOD 06/27/2024 12:51 PM [facility] NRBC Absolute 0.00 <0.10 K/mcL LAB HEMETOLOGY METHOD 06/27/2024 12:51 PM [facility] Neutrophils Relative 61.1 % LAB HEMETOLOGY METHOD 06/27/2024 12:51 PM [facility] Lymphocytes Relative 24.3 % LAB HEMETOLOGY METHOD 06/27/2024 12:51 PM [facility] Monocytes Relative 10.2 % LAB HEMETOLOGY METHOD 06/27/2024 12:51 PM [facility] Eosinophils Relative 3.0 % LAB HEMETOLOGY METHOD 06/27/2024 12:51 PM [facility] Basophils Relative 1.0 % LAB HEMETOLOGY METHOD 06/27/2024 12:51 PM [facility] Immature Granulocytes Relative 0.4 % LAB HEMETOLOGY METHOD 06/27/2024 12:51 PM [facility] Neutrophils Absolute 3.04 1.50 - 7.00 K/mcL LAB HEMETOLOGY METHOD 06/27/2024 12:51 PM [facility] Lymphocytes Absolute 1.21 1.00 - 5.00 K/mcL LAB HEMETOLOGY METHOD 06/27/2024 12:51 PM [facility] Monocytes Absolute 0.51 0.20 - 1.00 K/mcL LAB HEMETOLOGY METHOD 06/27/2024 12:51 PM [facility] Eosinophils Absolute 0.15 0.00 - 0.50 K/mcL LAB HEMETOLOGY METHOD 06/27/2024 12:51 PM [facility] Basophils Absolute 0.05 0.00 - 0.20 K/mcL LAB HEMETOLOGY METHOD 06/27/2024 12:51 PM [facility] Immature Granulocytes Absolute 0.02 0.00 - 0.03 K/mcL LAB HEMETOLOGY METHOD 06/27/2024 12:51 PM [facility] Blood Venous blood specimen / Unknown Venipuncture / Unknown 06/27/2024 11:48 AM EST 06/27/2024 12:39 PM EST Lorenzo Ferris DO LAB BLOOD ORDERABLES Final Result [facility] [address] [place] [address], [place] [phone] * Magnesium (06/27/2024 11:48 AM EST) Pathologist [facility] Magnesium 2.1 1.9 - 2.6 mg/dL LAB CHEMISTRY METHOD 06/27/2024 1:10 PM EST [facility] Blood Venous blood specimen / Unknown Venipuncture / Unknown 06/27/2024 11:48 AM EST 06/27/2024 12:39 PM EST Lorenzo Ferris DO LAB BLOOD ORDERABLES Final Result Performing Organization Address City/[facility]/ZIP Co de Phone Number [facility] [address] [place] [address], [place] [phone] * Basic metabolic panel (06/27/2024 11:48 AM EST) Pathologist [facility] Sodium 137 133 - 145 mmol/L LAB CHEMISTRY METHOD 06/27/2024 1:10 PM EST [facility] Potassium 4.3 3.5 - 5.5 mmol/L LAB CHEMISTRY METHOD 06/27/2024 1:10 PM [facility] Chloride 104 96 - 110 mmol/L LAB CHEMISTRY METHOD 06/27/2024 1:10 PM EST [facility] CO2 29 21 - 32 mmol/L LAB CHEMISTRY METHOD 06/27/2024 1:10 PM EST [facility] Anion Gap 4 3 - 11 LAB CHEMISTRY METHOD 06/27/2024 1:10 PM EST [facility] Glucose 89 70 - 100 mg/dL LAB CHEMISTRY METHOD 06/27/2024 1:10 PM EST [facility] BUN 14 5 - 25 mg/dL LAB CHEMISTRY METHOD 06/27/2024 1:10 PM [facility] Creatinine 0.66 0.50 - 1.10 mg/dL LAB CHEMISTRY METHOD 06/27/2024 1:10 PM [facility] eGFR 104 >=60 mL/min/1. 73m2 LAB CHEMISTRY METHOD 06/27/2024 1:10 PM [facility] Comment:Calculation based on the??Chronic Kidney Disease Epidemiology Collaboration (CKD-EPI) equation refit??without adjustment for race. BUN/Creatinine Ratio 21.2 LAB CHEMISTRY METHOD 06/27/2024 1:10 PM [facility] Calcium 9.2 8.5 - 10.5 mg/dL LAB CHEMISTRY METHOD 06/27/2024 1:10 PM [facility] Blood Venous blood specimen / Unknown Venipuncture / Unknown 06/27/2024 11:48 AM EST 06/27/2024 12:39 PM EST Lorenzo Ferris DO LAB BLOOD ORDERABLES Final Result [facility] [address] [place] [address], * ECG-Annotated (06/27/2024) Only the most recent of2 resultswithin the time period is included. us Provider Onbase MD ECG ORDERABLES Final Result from Last 3 Months Insurance [employer] MED[employer] Member Subscriber Plan / Payer (Ef fective 2020-Present) Name:Genoveva Reveles Relation to Subscriber:Self Name:Genoveva Reveles Payer ID:[id number] Group ID:[id number] Type:Not on file Address: [facility] [address] [place] [address] Care Teams School Custodian Relationship Specialty Start Date End Date Марина Mercado DO [address] [place] [address] PCP - General Pediatrics 12/22/16
--- OUTSIDE RECORDS SUMMARY | 2024-08-23 17:48 | XMS_ITS | Clinical Summary ---
Author Organization [facility] Address [address] [facility] [address] [place] [address] Phone Care Team Providers Care Resourcing Consultant Name Role Phone Марина Mercado DO Primary Care Provider [phone] Allergies Active Allergy Reactions Criticality Noted Date [...] Visit [facility] [address] [phone] Pro Mari MD [address] [address] Health Maintenance Due Date Last [...] Sigmoidoscopy 2018 Influenza Vaccine (#1) 2024 Insurance [facility] ([id number]) [facility] ([id number]) Care Teams Resourcing Consultant Relationship Specialty Start Date End Date Марина Mercado DO [address] [place] [phone] PCP - General Pediatrics 01/13/24
--- OUTSIDE RECORDS SUMMARY | 2024-08-23 17:48 | XMS_ITS | Encounter Summary ---
Author Organization [employer] Address [address] [place] [address] Care Team Providers Care Concreter Name Role Phone Марина Mercado DO Primary Care Provider Reason for Visit * Reason Onset Date Comments Scheduling Recall 08/18/2024 Encounter Details Date Type Department Care Team (Late st Contact Info) Description 08/18/2024 Telephone [facility] - [address] [place] [address] Ira Saez NP [address] [place] [address] Scheduling Recall Social History Tobacco Use Types Packs/Day Years [...] on file documented as of this encounter Progress Notes * Yvonne Osman - 08/18/2024 11:40 AM EST I called the patient to schedule a follow up office visit and no answer. I left a message on the machine with details and the number to call back and schedule at their earliest convenience. documented in this encounter Plan of Treatment Not on file documented as of this encounter Visit Diagnoses Not on filedocumented in this encounter Care Teams Concreter Relationship Specialty Start Date End Date Марина Mercado DO [address] [place] [address] PCP - General Pediatrics 12/22/16 documented as of this encounter
--- OUTSIDE RECORDS SUMMARY | 2024-08-23 17:48 | XMS_ITS | Clinical Summary ---
Author Organization [facility] Address [address] [place] [address] Care Team Providers Care Gaming Manager Name Role Phone Марина Mercado MD [...] REST SEEK IMMEDIATE MEDICAL ATTENTION Active nystatin 459197 UNIT/GM powder APPLY TOPICALLY TWO TIMES A [...] Type Department Care Team Description 07/21/2024 Telephone [facility] Rheumatology [address] [place] [phone] Irina Yost MD Results Request from [...] ( - 2023- season) 2024 Care Teams Gaming Manager Relationship Specialty Start Date End Date Марина Mercado MD [facility] [place] [address] PCP - General Pediatric, General 05/14/22
--- OUTSIDE RECORDS SUMMARY | 2024-08-23 17:48 | XMS_ITS | Patient Health Record ---
Author Organization [facility] Address [address] [place] [address] Care Team Providers Care Foam Cutting Supervisor Name Role Phone Марина Mercado M.D. 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) Active confirmed Plan Of Treatment No Information Insurance Providers Payer Name Payer Address Payer Phone Subscriber Number Group Number Insured Name Patient Relationship to Insured Coverage Start Date Coverage End Date [facility] [employer] Claims [address] [place] [address] [phone] [id number] Genoveva Reveles Self - patient is the insured Medical (General) History Medical History History ICD Code Anxiety Arthritis asthma Back,Hip,and Knee pain Fibromyalgia Chicken pox Headaches/Migraines Lung disease Lupus Numbness raynauds disease thyroid Autoimmune disorder Surgical History Surgery Date(Month/Year) gall bladder 1989
== END 2024-08-23 15:18 | disposition home or self-care (01) ==
PROVIDERS: Visit Provider Orthopaedic Surgery
DX: M18.0 Bilateral primary osteoarthritis of first carpometacarpal joints (principal); M79.645 Pain in left finger(s)
CPT/HCPCS: 99214

== ENCOUNTER → 2024-08-23 14:24 | Outpatient (BNVA) | payer OTHER, SELFPAY | PROVIDERS: Visit Provider Orthopaedic Surgery | DX: M18.0 Bilateral primary osteoarthritis of first carpometacarpal joints (principal) | CPT/HCPCS: 99212 ==

== ENCOUNTER 2024-09-01 19:22 | Emergency (ER) | payer OTHER, SELFPAY ==
--- NOTE | ~2024-09-01 | CT_ITS ---
CLINICAL HISTORY: Lower abdominal and flank pain, nausea, vomiting, CT abdomen and pelvis with contrast Comparison: CT - CT ABDOMEN PELVIS W IV CON - 09/02/24 00:15 EST Findings: Mild peripheral septal thickening noted in the lung bases. Gallbladder is surgically absent. No focal hepatic lesion identified. Pancreas and spleen are within normal limits. Adrenal glands are unremarkable. Kidneys are non hydronephrotic and enhance symmetrically. Nonobstructing calculus is in the lower pole of the right kidney. No bowel obstruction, pneumoperitoneum, or pneumatosis. Pelvic contents unremarkable. Normal appendix. No acute fracture. Focal area of intermediate density is in the subcutaneous fat of the right abdomen measuring 3.4 x 1.6 cm. IMPRESSION: Focal density in the subcutaneous fat of the right abdomen measuring 3.4 x 1.6 cm, possibly scarring or hematoma. Please correlate clinically. This document has been electronically signed by: Chirag Fierro MD, PHD on 09/02/2024 01:50:19
[2024-09-01 19:32] VITALS: BP 135/48; PULSE 68; RESP 16; TEMP 36.6; O2SAT 97; BMI 29.2
--- NOTE | 2024-09-01 19:32 | ED.GENADULT ---
HPI - General Adult General Chief complaint: Abdominal Pain Stated complaint: SOB/ abd pain shifted to lower left side Time Seen by Provider: 09/01/24 23:47 History of Present Illness ED Provider: Dr. Momo Sheridan HPI narrative: 54-year-old female with a history of hypothyroidism, interstitial fibrosis, nonspecific autoimmune disease, cholecystitis who presents emergency department for evaluation of sudden onset of lower abdominal pain associated with left flank pain, nausea, vomiting and diarrhea. Symptoms started suddenly at 15:30 hours. She describes the lower abdominal pain that has a constant, sharp, stabbing pain which is 9/10 at its worst. She states that the left flank pain is also 9/10. Patient states this is a 1st episode of this type of pain. Patient did have at least 4 episodes of vomiting and 4 episodes of loose watery diarrheal stool. Related Data Home Medications ?Medication ?Instructions ?Recorded ?Confirmed levothyroxine 112 mcg tablet mcg PO DAILY 07/14/24 Previous Rx's ?Medication ?Instructions ?Recorded ondansetron 4 mg disintegrating 4 mg PO Q6-8H PRN nausea and 09/02/24 tablet vomiting #14 tabs Allergies Allergy/AdvReac Type Severity Reaction Status Date / Time acetaminophen [From Tylenol] Allergy Anaphylaxis Verified 09/01/24 19:33 levofloxacin [From Levaquin] Allergy Anaphylaxis Verified 09/01/24 19:33 Penicillins [PCN] Allergy Anaphylaxis Verified 09/01/24 19:33 sulfamethoxazole Allergy Anaphylaxis Verified 09/01/24 19:33 [From Bactrim] trimethoprim [From Bactrim] Allergy Anaphylaxis Verified 09/01/24 19:33 Review of Systems Review of Systems: Yes all other systems are reviewed and are negative PMFSH Past Medical History Medical History Fall Social History Social History Alcohol intake: never Patient Tobacco Use Status: Never used Tobacco Smoked in Last 30 Days: No Use of substances other than those prescribed or required for medical reasons: No Advance Directives: No Advance Directives Information Provided: Yes Do you have a plan to hurt others: No Plan Current occupational status: disabled Current occupation: rt hand Physical Exam ED Vital Signs: Vital Signs - 24 hr 09/01/24 19:32 09/01/24 23:32 09/02/24 00:39 Temperature 97.9 F 98.3 F 98.0 F Pulse Rate 68 63 53 Respiratory Rate 16 16 16 Blood Pressure 135/48 L 116/49 L 119/67 Pulse Oximetry 97 97 99 Oxygen Delivery Method Room Air Room Air Room Air 09/02/24 02:07 Temperature 97.4 F Pulse Rate 55 Respiratory Rate 16 Blood Pressure 130/43 L Pulse Oximetry 97 Oxygen Delivery Method Room Air BMI result Body Mass Index 29.2 Course Course Course Narrative: RME performed by Pamela Berger PA-C. Patient is a 54 year old assigned female at presenting to the emergency department with epigastric pain. Detailed physical exam and review of systems are deferred to the photographic restorer. EKG, labs, and swabs ordered. Patient placed back in the waiting room pending room availability and results. Medications Administered Discontinued Medications Generic Name Dose Route Start Last Admin Trade Name Freq PRN Reason Stop Dose Admin Sodium Chloride 1,000 mls @ 999 mls/hr 09/02/24 00:08 09/02/24 00:32 Ns IV 09/02/24 01:08 999 mls/hr .Q1H1M STA Administration Iohexol 85 ml 09/02/24 00:52 09/02/24 00:52 Iohexol 350 Mg/Ml 100 Ml Infus..Btl IV 09/02/24 00:53 85 ml ONCE ONE Administration Ketorolac Tromethamine 15 mg 09/02/24 00:08 09/02/24 00:34 Ketorolac Tromethamine 15 Mg/Ml Vial IVPUSH 09/02/24 00:09 15 mg ONCE STA Administration Lorazepam 1 mg 09/02/24 00:08 09/02/24 00:34 Lorazepam 2 Mg/Ml Vial IVPUSH 09/02/24 00:09 Not Given STAT STA Ondansetron HCl 4 mg 09/02/24 00:08 09/02/24 00:34 Ondansetron Hcl 4 Mg/2 Ml Vial IVPUSH 09/02/24 00:09 4 mg ONCE ONE Administration Medical Decision Making Medical Decision Making MDM Narrative: 54-year-old female with a history of hypothyroidism, interstitial fibrosis, nonspecific autoimmune disease, cholecystitis who presents emergency department for evaluation of sudden onset of sharp, constant, lower abdominal pain, 9/10, radiating to left flank associated with nausea, vomiting x4 and loose, watery stool diarrhea x4. First episode of this type of pain. Initial vital signs were normal. Examination did reveal diffuse mild to moderate pain with moderate left and right lower quadrant tenderness. Patient has no CV tenderness. Differential diagnosis: ?Includes but is not limited to diverticulitis, pancreatitis, viral syndrome, COVID-19, influenza, RSV, renal colic, ureteral colic, anemia, electrolyte abnormalities Course: 23:49 My independent interpretation patient's laboratory evaluation as follows: CBC was normal. CMP was normal. Troponin was below detectable limits. COVID-19, influenza and RSV were negative. Based on her presentation and exam, I did order a CT scan of the abdomen pelvis with IV contrast. Patient was ordered to get Toradol 15 mg IV, Zofran 4 mg IV and normal saline x1 L. patient states she was claustrophobic therefore she was also treated with Ativan 1 mg IV prior to CT scan 02:22 Patient was pain improved significantly after the above treatment. CT scan of the abdomen pelvis with IV contrast did not reveal acute cause with the patient's pain. The patient was have a right nonobstructing kidney stone I did discuss this with her. The patient most likely has acute viral syndrome. Patient was prescribed Zofran 4 mg ODT every 6 hours as needed for nausea and vomiting. She was advised to take ibuprofen 400 mg 3 times a day as needed for her abdominal pain. She was also advised to take Imodium for diarrhea. She was instructed a BETI diet discharged home with verbal and printed instructions. Admission/Observation Consideration of admission/observation: Escalation of care including admission/observation considered (Yes) Lab Data MDM Lab Attestation statement: I reviewed the patient's lab results. 09/01/24 20:10 09/01/24 20:10 Labs: Lab Results 09/01/24 Range/Units 20:10 WBC 9.0 (4.8-10.8) X10*3/uL RBC 4.74 (4.20-5.50) X10*6/uL Hgb 13.4 (12.0-16.0) g/dl Hct 40.5 (37.0-47.0) % MCV 85.4 (80.0-98.0) fL MCH 28.3 (27.0-33.0) pg MCHC 33.1 (31.0-35.0) g/dl RDW 13.2 (11.0-16.0) % Plt Count 235 (160-400) X10*3/uL MPV 9.9 (9.4-12.3) fL Immature Gran % (Auto) 0.3 (0.0-0.4) % Neut % (Auto) 86.4 H (45-73) % Lymph % (Auto) 8.3 L (20-40) % Angelina % (Auto) 4.6 (2-11) % Eos % (Auto) 0.1 (0-4) % Baso % (Auto) 0.3 (0-2) % Lymph # (Auto) 0.7 L (1.2-4.9) X10*3/uL Angelina # (Auto) 0.4 (0.1-1.2) X10*3/uL Eos # (Auto) 0.0 (0.0-0.4) X10*3/uL Baso # (Auto) 0.0 (0.0-0.2) X10*3/uL Abs Immat Gran (auto) 0.03 (0.00-0.03) X10*3/uL Absolute Neuts (auto) 7.7 (2.0-8.3) x10*3/uL Absolute Nucleated RBC 0.000 (0.0-0.012) X10*3/uL Nucleated RBC % (auto) 0.0 (0.0-0.2) /100WBC Sodium 139 (135-145) mmol/L Potassium 4.8 (3.3-5.1) mmol/L Chloride 105 (96-108) mmol/L Carbon Dioxide 27 (22-29) mmol/L Anion Gap 12 (12-20) BUN 21 H (9-16) mg/dL Creatinine 0.70 (0.5-1.4) mg/dL Estim Creat Clear Calc 88.0 Estimated GFR > 60 Random Glucose 103 (60-115) mg/dL Calcium 9.7 D (8.4-10.2) mg/dL Magnesium 2.0 (1.6-2.6) mg/dL Total Bilirubin 0.4 (0.0-1.0) mg/dL AST 34 H (5-31) U/L ALT 22 (0-31) U/L Alkaline Phosphatase 71 (39-117) U/L Troponin I High Sens < 2.7 (<3.5-17.0) ng/L Total Protein 8.7 H (6.5-8.0) g/dL Albumin 4.4 (3.5-5.0) g/dL Lipase 17 (8-78) U/L Influenza Type A (PCR) NEGATIVE (Negative) Influenza Type B (PCR) NEGATIVE (Negative) RSV RNA Qual (PCR) NEGATIVE (Negative) SARS-CoV-2 RNA (RT-PCR) NEGATIVE (Negative) Independent Interpretation I performed an independent interpretation of an: EKG Interpretation: My independent interpretation the patient's 12 EKG done on 09/01/2024 at 20:07 hours is as follows: Normal sinus rhythm rate of 61, normal NM interval, QRS duration and QTC interval, no ST segment elevation, no ST segment depression, inverted T-waves 3, AVF, V1 through V6, no PACs, no PVCs. Compared to EKG dated 06/28/2024 at 19:55 hours: Inverted T-wave in 3, V1 through V4 were present on the previous EKG. Radiology Impression Discussion of test interpretation with radiology: I have reviewed the radiologist's reading. Radiologist Impression: CT abdomen and pelvis with contrast Comparison: CT - CT ABDOMEN PELVIS W IV CON - 09/02/24 00:15 EST Findings: Mild peripheral septal thickening noted in the lung bases. Gallbladder is surgically absent. No focal hepatic lesion identified. Pancreas and spleen are within normal limits. Adrenal glands are unremarkable. Kidneys are non hydronephrotic and enhance symmetrically. Nonobstructing calculus is in the lower pole of the right kidney. No bowel obstruction, pneumoperitoneum, or pneumatosis. Pelvic contents unremarkable. Normal appendix. No acute fracture. Focal area of intermediate density is in the subcutaneous fat of the right abdomen measuring 3.4 x 1.6 cm. IMPRESSION: Focal density in the subcutaneous fat of the right abdomen measuring 3.4 x 1.6 cm, possibly scarring or hematoma. Please correlate clinically. This document has been electronically signed by: Chirag Fierro MD, PHD on 09/02/2024 01:50:19 Independent Historian Clinical information obtained from an independent historian. History obtained from or confirmed by: Other (Daughter) Prescription Management I considered prescription management with: Other (Antiemetic: Zofran ODT) Chronic Conditions Patient?s care impacted by: Other (Fibromyalgia) Discharge Plan Discharge Clinical Impression: Acute viral syndrome Abdominal pain Qualifiers: Abdominal location: lower abdomen, unspecified Qualified Code(s): R10.30 - Lower abdominal pain, unspecified Nausea & vomiting Qualifiers: Vomiting type: unspecified Qualified Code(s): R11.2 - Nausea with vomiting, unspecified Diarrhea Qualifiers: Diarrhea type: unspecified type Qualified Code(s): R19.7 - Diarrhea, unspecified Patient Disposition: Home, Self-Care Instructions: Viral Syndrome (ED), Abdominal Pain (ED) Additional Instructions: Your blood work was unremarkable. Your COVID-19, influenza and RSV tests were negative. The CT scan of your abdomen pelvis did not reveal a clear cause for your pain. You do have a kidney stone in your right kidney but this is not causing your pain. Your symptoms are most likely caused by a viral infection. Take ibuprofen 200 mg pills, 2 pills every 6 hours as needed for pain. Take Zofran ODT 4 mg pills, 1 pill dissolved in your mouth every 8 hours as needed for nausea and vomiting. For diarrhea I want you to take Imodium 2 mg pills. ?Take 2 pills after the 1st loose, diarrheal stool then 1 pill after each loose, diarrheal stool up to 8 pills per day. ?This usually stops diarrhea within 24 hours. For the next 24 hours, stay on a BETI diet (bananas, rice, applesauce, tea and toast). Follow-up with your doctor in 2 days. Please return to the emergency department if your symptoms get worse or if you develop any symptoms that are concerning to you. Prescriptions: New ondansetron 4 mg tablet,disintegrating 4 mg PO Q6-8H PRN (Reason: nausea and vomiting) Qty: 14 0RF No Action levothyroxine 112 mcg tablet PO DAILY Print Language: Slovak
--- NOTE | 2024-09-01 19:33 | ECG_ITS ---
Test Reason : SOB/ABD PAIN Blood Pressure : */* mmHG Vent. Rate : 61 BPM Atrial Rate : 61 BPM P-R Int : 168 ms QRS Dur : 86 ms QT Int : 426 ms P-R-T Axes : 55 3 -15 degrees QTcB Int : 428 ms Normal sinus rhythm Low voltage QRS Cannot rule out Anterior infarct (cited on or before 28-Jun-2024) Abnormal ECG When compared with ECG of 28-Jun-2024 19:55, Nonspecific T wave abnormality now evident in Lateral leads Referred By: Pamela Berger Electronically Signed By: MICHELE HOLLAND MD
[2024-09-01 20:23] LABS: MANUAL DIFF FLAG NO
[2024-09-01 20:25] LABS: Basophils Percent Auto 0.3 % (0-2); Eosinophils Percent Auto 0.1 % (0-4); Hematocrit 40.5 % (37.0-47.0); Hemoglobin 13.4 g/dl (12.0-16.0); Imm Gran Abs Auto 0.03 X10*3/uL (0.00-0.03); Imm Gran Pct Auto 0.3 % (0.0-0.4); Lymphocytes Absolute Auto 0.7 X10*3/uL (1.2-4.9); Lymphocytes Percent Auto 8.3 % (20-40); Mean Corpuscular HGB Conc 33.1 g/dl (31.0-35.0); Mean Corpuscular Hemoglobin 28.3 pg (27.0-33.0); Mean Corpuscular Volume 85.4 fL (80.0-98.0); Mean Platelet Volume 9.9 fL (9.4-12.3); Monocytes Absolute Auto 0.4 X10*3/uL (0.1-1.2); Monocytes Percent Auto 4.6 % (2-11); Neutrophils Absolute Auto 7.7 x10*3/uL (2.0-8.3); Neutrophils Percent Auto 86.4 % (45-73); Platelet Count 235 X10*3/uL (160-400); Red Blood Count 4.74 X10*6/uL (4.20-5.50); Red Cell Distribution Width 13.2 % (11.0-16.0)
[2024-09-01 20:42] LABS: Alanine Aminotransferase 22 U/L (0-31); Albumin Level 4.4 g/dL (3.5-5.0); Alkaline Phosphatase 71 U/L (39-117); Anion Gap 12 (12-20); Aspartate Amino Transferase 34 U/L (5-31); Bilirubin Total 0.4 mg/dL (0.0-1.0); Blood Urea Nitrogen 21 mg/dL (9-16); Calcium 9.7 mg/dL (8.4-10.2); Carbon Dioxide 27 mmol/L (22-29); Chloride 105 mmol/L (96-108); Estimated Glomerular Filt Rate > 60; Glucose Random 103 mg/dL (60-115); Potassium 4.8 mmol/L (3.3-5.1); Sodium 139 mmol/L (135-145); Total Protein 8.7 g/dL (6.5-8.0)
[2024-09-01 20:52] LABS: Troponin-I High Sensitivity < 2.7 ng/L (<3.5-17.0)
[2024-09-01 21:02] LABS: Influenza A PCR NEGATIVE (Negative); Influenza B PCR NEGATIVE (Negative); Resp Syncy Virus RNA Qual PCR NEGATIVE (Negative); SARS COV2 PCR INHOUSE NEGATIVE (Negative)
[2024-09-01 23:32] VITALS: BP 116/49; PULSE 63; RESP 16; TEMP 36.8; O2SAT 97
[2024-09-02 00:12] LABS: Lipase 17 U/L (8-78)
[2024-09-02] MEDS: 0.9 % Sodium Chloride 1,000 ML 999 ML IV (00:32)
[2024-09-02] MEDS: ondansetron HCL 4 MG/2 ML VIAL IVPUSH (00:34)
[2024-09-02] MEDS: Ketorolac Tromethamine 15 MG/ML VIAL IVPUSH (00:34)
[2024-09-02 00:39] VITALS: BP 119/67; PULSE 53; RESP 16; TEMP 36.7; O2SAT 99
[2024-09-02] MEDS: iohexoL 350 MG/ML 100 ML INFUS..BTL 85 ML IV (00:52)
[2024-09-02 02:07] VITALS: BP 130/43; PULSE 55; RESP 16; TEMP 36.3; O2SAT 97
[2024-09-02 02:40] VITALS: BP 130/43; PULSE 55; RESP 16; TEMP 36.3; O2SAT 97
== END 2024-09-02 02:40 | disposition home or self-care (01) ==
PROVIDERS: Physician Assistant Medical; Emergency Provider Emergency Medicine Emergency Medical Services; PCP Surgery Surgery of the Hand
DX: B34.9 Viral infection, unspecified (principal); R10.30 Lower abdominal pain, unspecified; R11.2 Nausea with vomiting, unspecified; R19.7 Diarrhea, unspecified; N20.0 Calculus of kidney; E03.9 Hypothyroidism, unspecified; Z88.0 Allergy status to penicillin; Z88.1 Allergy status to other antibiotic agents; Z03.818 Encounter for observation for suspected exposure to other biological agents ruled out
CPT/HCPCS: 0241U; 74177; 80053; 83690; 83735; 84484; 85025; 93005; 96361; 96374; 96375; 99285; J1885; J2405; Q9967

== ENCOUNTER → 2024-09-01 19:33 | Outpatient (BNV) | payer OTHER, SELFPAY | PROVIDERS: Emergency Provider Emergency Medicine Emergency Medical Services; PCP Surgery Surgery of the Hand; Visit Provider Internal Medicine Cardiovascular Disease | DX: R94.31 Abnormal electrocardiogram [ECG] [EKG] (principal); R06.02 Shortness of breath; R10.9 Unspecified abdominal pain | CPT/HCPCS: 93010 ==

== ENCOUNTER → 2024-09-02 00:09 | Outpatient (BNV) | payer OTHER, SELFPAY | PROVIDERS: Emergency Provider Emergency Medicine Emergency Medical Services; PCP Surgery Surgery of the Hand; Visit Provider General Practice | DX: R10.30 Lower abdominal pain, unspecified (principal); R11.2 Nausea with vomiting, unspecified | CPT/HCPCS: 74177 ==

== ENCOUNTER 2025-04-11 16:25 | Emergency (ER) | payer OTHER, SELFPAY ==
--- NOTE | ~2025-04-11 | XR_ITS ---
CLINICAL HISTORY: FOOSH 6 view left hand Comparison: None provided Findings: Bones intact. No dislocations. No significant loss of joint space or osteophytes. No erosions. No radiopaque foreign body. Negative ulnar variance bilaterally. IMPRESSION: 1. No acute osseous injury. This document has been electronically signed by: Faisal Sharp MD on 04/11/2025 17:57:21
--- NOTE | ~2025-04-11 | XR_ITS ---
CLINICAL HISTORY: FOOSH 8 view bilateral wrist Comparison: CT/HI/SR - CT WRIST WITHOUT IV CONTRAST LEFT - 07/19/24 13:23 EST DX/HI/SR - XR WRIST LT MIN 3V - 07/14/24 14:53 EST Findings: No fractures or dislocations. No significant loss of joint space, osteophyte, or erosions. No radiopaque foreign body. Negative ulnar variance. IMPRESSION: 1. Negative ulnar variance. 2. No acute osseous injury. This document has been electronically signed by: Faisal Sharp MD on 04/11/2025 18:05:38
[2025-04-11 16:33] VITALS: BP 130/68; PULSE 68; RESP 16; TEMP 36.1; O2SAT 96; BMI 33.7
--- NOTE | 2025-04-11 16:34 | ED_ITS ---
HPI - General Adult General Chief complaint: Extremity Problem Stated complaint: fall yesterday, bilateral wrist pain Time Seen by Provider: 04/11/25 21:04 Source: patient Mode of arrival: ambulatory History of Present Illness ED Provider: HPI narrative: 54-year-old woman presenting with bilateral wrist pain after fall yesterday on outstretched hand, left wrist hurts more than right wrist, she states she has has been using ibuprofen without much help. Denies head injury. Related Data Home Medications ?Medication ?Instructions ?Recorded ?Confirmed levothyroxine 112 mcg tablet mcg PO DAILY 07/14/24 Previous Rx's ?Medication ?Instructions ?Recorded ondansetron 4 mg disintegrating 4 mg PO Q6-8H PRN naus ea and 09/02/24 tablet vomiting #14 tabs Allergies Allergy/AdvReac Type Severity Reaction Status Date / Time acetaminophen (From Tylenol) Allergy Anaphylaxis Verified 04/11/25 16:34 levofloxacin (From Levaquin) Allergy Anaphylaxis Verified 04/11/25 16:34 Penicillins (PCN) Allergy Anaphylaxis Verified 04/11/25 16:34 sulfamethoxazole (From Allergy Anaphylaxis Verified 04/11/25 16:34 Bactrim) trimethoprim (From Bactrim) Allergy Anaphylaxis Verified 04/11/25 16:34 Review of Systems Constitutional: Constitutional: Reports as per [facility] Past Medical History Medical History Fall Social History Social History Alcohol intake: never Patient Tobacco Use Status: Never used Tobacco Advance Directives: No Advance Directives Information Provided: Yes Current occupational status: disabled Current occupation: rt hand Physical Exam ED Exam Exam: Full range of motion both shoulders, both elbows and both wrists without any deformities, radial ulnar pulses +2 able to spread her fingers, hitchhike her thumbs Alert and oriented inpatient x4 without any facial trauma Evaluated sitting down Vital Signs: Vital Signs - 24 hr 04/11/25 16:33 Temperature 96.9 F Pulse Rate 68 Respiratory Rate 16 Blood Pressure 130/68 Pulse Oximetry 96 Oxygen Delivery Method Room Air BMI result Body Mass Index 33.7 Course Course Course Narrative: This is a Rapid Medical Examination (RME) performed by Joaquin Pelletier PA-C in triage. Full HPI, ROS, assessment and treatment plan per primary provider in the Main ED. Hx: Patient is a 54yo female with a pmhx of presenting for evaluation of a mechanical fall in which she landed on open palms yesterday. She now endorses pain to bilateral wrists. Miguel Angel head injury or LOC. Using heat and ice as well as OTC motrin with no relief. Plan:Xrs Medical Decision Making Medical Decision Making [facility] Narrative: 9:32 PM 04/11/2025 (Dr. Sundar Dixon): No evidence for elbow fractures, rib fractures shoulder dislocations, no report of head or neck injury, x-rays unremarkable Differential Diagnosis Differential Diagnoses: The differential diagnosis associated with the presentation includes (See above) 1. Negative ulnar variance. 2. No acute osseous injury. Independent Interpretation I performed an independent interpretation of an: Plain X-Ray (Acute injuries noted on left hand, bilateral wrists x-rays) Radiology Impression Discussion of test interpretation with radiology: I have reviewed the radiologist's reading. (Negative For acute injuries) Prescription Management I considered prescription management with: Pain Medication Discharge Plan Discharge Clinical Impression: Contusion of left wrist, Contusion of right wrist Patient Disposition: Home, Self-Care Instructions: Contusion in Adults (ED) Additional Instructions: Evaluated after falling down on outstretched hands yesterday, you had x-rays of both wrists and left hand x-ray, on physical examination you have no deformities some tenderness You can use ibuprofen 400 mg every 6 hours needed for pain and inflammation, ice the areas as well, this will take a few days to resolve Any additional concerns follow up with the PCP or come back to the ER Prescriptions: No Action ondansetron 4 mg tablet,disintegrating 4 mg PO Q6-8H PRN (Reason: nausea and vomiting) Qty: 14 0RF levothyroxine 112 mcg tablet PO DAILY Print Language: Syriac
--- OUTSIDE RECORDS SUMMARY | 2025-04-11 20:38 | XMS_ITS ---
Author Name [facility] Organization Unknown History of Medication Use Medication Directions Dispensed Refills Start Date End Date Stat cetirizine (ZyrTEC) 10 MG tablet Take 1 tablet (10 mg total) by mouth daily. 02/12/2023 active EPINEPHrine 0.3 mg/0.3 mL IJ auto-injection INJECT 0.3 MG INTRAMUSCULARLY ONCE NEEDED FOR ANAPHYLACTIC REACTION 02/09/2023 active albuterol (PROVENTIL HFA; VENTOLIN HFA) 108 (90 Base) MCG/ACT inhaler albuterol sulfate HFA 90 mcg/actuation aerosol inhaler 09/01/2022 active celeCOXIB (CeleBREX) 200 MG capsule Take 1 capsule (200 mg total) by mouth daily as needed. 07/22/2022 active cyclobenzaprine (FLEXERIL) 10 MG tablet Take 1 tablet (10 mg total) by mouth 2 (two) times a day as needed. 07/22/2022 active levothyroxine (SYNTHROID, LEVOTHROID) 112 MCG tablet TAKE 1 TABLET BY MOUTH DAILY WEDNESDAY THROUGH WEDNESDAY, AND TAKE 2 TABLETS ON WEDNESDAY RECHECK IN 8 WEEKS) 07/02/2022 active nystatin 931417 UNIT/GM powder APPLY TOPICALLY TWO TIMES A DAY FOR 14 DAYS 06/25/2022 active diclofenac (VOLTAREN) 1 % gel diclofenac 1 % topical gel APPLY 2 GRAMS TOPICALLY 3 TIMES A DAY NEEDED FOR PAIN NOT TO EXCEED 8 GRAMS A DAY SINGLE JOINT OF UPPER EXTREM. NOT TO EXCEEDS 32 GRAMS 01/21/2022 active fluticasone (FloNASE) 50 mcg/spray nasal spray into each nostril. 11/05/2021 active SUMAtriptan (IMITREX) 50 MG tablet Take 1 tablet (50 mg total) by mouth. 10/17/2021 active naproxen (NAPROSYN) 500 MG tablet naproxen 500 mg tablet 09/25/2021 active budesonide-formoterol (SYMBICORT) 160-4.5 MCG/ACT inhaler Inhale 2 puffs. acti ve Cholecalciferol (VITAMIN D3) 2000 UNITS Cap capsule cholecalciferol (vitamin D3) 50 mcg (2,000 unit) capsule TAKE ONE CAPSULE BY MOUTH DAILY active clotrimazole (LOTRIMIN) 1 % cream clotrimazole 1 % topical cream APPLY TWO TIMES A DAY FOR 7 DAYS UNDER BOTH BREASTS IF RASH DOES NOT RESOLVE IN 7 DAYS USE FOR ADDITIONAL 7 DAYS CALL IF WORSENING active DULoxetine (CYMBALTA) 30 MG capsule duloxetine 30 mg capsule,delayed release TAKE ONE CAPSULE BY MOUTH EVERY DAY INCREASE TO 2 DAILY IF TOLLERATING AFTER 2 WEEKS active fluconazole (diFLUcan) 150 MG tablet Oral for 28 active ketoconazole (NIZORAL) 2 % cream APPLY 1 APPLICATION TOPICALLY TO AFFECTED AREA ONCE A DAY active Melatonin 1 MG Tab melatonin 1 mg tablet TAKE 1 TABLET 1 HOUR PRIOR TO BEDTIME active meloxicam (MOBIC) 15 MG tablet meloxicam 15 mg tablet active Multiple Vitamins-Minerals (Multivitamin Adult) Chew Tab multivitamin active nitroglycerin (NITROSTAT) 0.3 MG SL tablet nitroglycerin 0.3 mg sublingual tablet DISSOLVE 1 TABLET UNDER TONGUE EVERY 5 MINUTES NEEDED FOR CHEST PAIN FOR CHEST PAIN NOT IMPROVED BY REST SEEK IMMEDIATE MEDICAL ATTENTION active Allergies Allergen Reaction Severity Comment Documented Date Source Statu s SULFAMETHOXAZOLE-TRIM ETHOPRIM ANGIOEDEMA 11/12/2020 [facility] active ACETAMINOPHEN OTHER (SEE COMMENTS) [facility] DOXYCYCLINE OTHER (SEE COMMENTS) [facility] LEVOFLOXACIN OTHER (SEE COMMENTS) [facility] PENICILLINS OTHER (SEE COMMENTS) [facility] Problems Problem Status Onset Date Problem Type Date of Resoluti on Source ILD (interstitial lung disease) active 2024-01-03 [facility]Act [facility] Encounters Encounter Type Encounter Reason Primary Diagnosis Location Date Ambulatory Other specified abnormal immunological findings in serum Other specified abnormal immunological findings in serum [facility] 01/03/2024 Ambulatory Other specified abnormal immunological findings in serum [facility] 09/15/2022 Care Team Organization Name Specialty Phone Email Start Date End Da te [facility]RE[facility] 09/15/2022 09/13/2024 [facility] ANIL [facility] 09/15/2022 09/15/2022 [facility]
--- OUTSIDE RECORDS SUMMARY | 2025-04-11 20:38 | XMS_ITS | Clinical Summary ---
Author Organization [facility] Address [address] [place] [address] Care Team Providers Care Household Appliance Repairer Name Role Phone Марина Mercado MD Primary Care Provider Allergies Active Allergy Reactions Criticality Noted Date Comments Acetaminophen Other (See Comments) 11/12/2020 Doxycycline Other (See Comments) 11/12/2020 Levofloxacin Other (See Comments) 11/12/2020 Penicillins Other (See Comments) 11/12/2020 Sulfamethoxazole-Trimethoprim Angioedema High 2020 Medications albuterol (PROVENTIL HFA; VENTOLIN HFA) 108 (90 Base) MCG/ACT inhaler albuterol sulfate HFA 90 mcg/actuation aerosol inhaler 09/02/19 23 Active budesonide-for moterol (SYMBICORT) 160-4.5 MCG/ACT inhaler Inhale 2 puffs. Acti ve celeCOXIB (CeleBREX) 200 MG capsule Take 1 capsule (200 mg total) by mouth daily as needed. 07/22/19 23 Active Cholecalcifero l (VITAMIN D3) 2000 UNITS Cap capsule cholecalciferol (vitamin D3) 50 mcg (2,000 unit) capsule TAKE ONE CAPSULE BY MOUTH DAILY Active clotrimazole (LOTRIMIN) 1 % cream clotrimazole 1 % topical cream APPLY TWO TIMES A DAY FOR 7 DAYS UNDER BOTH BREASTS IF RASH DOES NOT RESOLVE IN 7 DAYS USE FOR ADDITIONAL 7 DAYS CALL IF WORSENING Active cyclobenzaprin e (FLEXERIL) 10 MG tablet Take 1 tablet (10 mg total) by mouth 2 (two) times a day as needed. 07/22/19 23 Active diclofenac (VOLTAREN) 1 % gel diclofenac 1 % topical gel APPLY 2 GRAMS TOPICALLY 3 TIMES A DAY NEEDED FOR PAIN NOT TO EXCEED 8 GRAMS A DAY SINGLE JOINT OF UPPER EXTREM. NOT TO EXCEEDS 32 GRAMS 07/27/20 22 Active DULoxetine (CYMBALTA) 30 MG capsule duloxetine 30 mg capsule,delayed release TAKE ONE CAPSULE BY MOUTH EVERY DAY INCREASE TO 2 DAILY IF TOLLERATING AFTER 2 WEEKS Active fluticasone (FloNASE) 50 mcg/spray nasal spray into each nostril. 11/06/19 22 Active levothyroxine (SYNTHROID, LEVOTHROID) 112 MCG tablet TAKE 1 TABLET BY MOUTH DAILY WEDNESDAY THROUGH WEDNESDAY, AND TAKE 2 TABLETS ON WEDNESDAY RECHECK IN 8 WEEKS) 07/02/19 23 Active Melatonin 1 MG Tab melatonin 1 mg tablet TAKE 1 TABLET 1 HOUR PRIOR TO BEDTIME Active meloxicam (MOBIC) 15 MG tablet meloxicam 15 mg tablet Active naproxen (NAPROSYN) 500 MG tablet naproxen 500 mg tablet 09/26/19 22 Active nitroglycerin (NITROSTAT) 0.3 MG SL tablet nitroglycerin 0.3 mg sublingual tablet DISSOLVE 1 TABLET UNDER TONGUE EVERY 5 MINUTES NEEDED FOR CHEST PAIN FOR CHEST PAIN NOT IMPROVED BY REST SEEK IMMEDIATE MEDICAL ATTENTION Active nystatin 820476 UNIT/GM powder APPLY TOPICALLY TWO TIMES A DAY FOR 14 DAYS 06/25/20 22 Active SUMAtriptan (IMITREX) 50 MG tablet Take 1 tablet (50 mg total) by mouth. 10/18/19 22 Active Multiple Vitamins-Ronan als (Multivitamin Adult) Chew Tab multivitamin Active cetirizine (ZyrTEC) 10 MG tablet Take 1 tablet (10 mg total) by mouth daily. 02/13/20 23 Active EPINEPHrine 0.3 mg/0.3 mL IJ auto-injection INJECT 0.3 MG INTRAMUSCULARLY ONCE NEEDED FOR ANAPHYLACTIC REACTION 02/10/20 23 Active fluconazole (diFLUcan) 150 MG tablet Oral for 28 Active ketoconazole (NIZORAL) 2 % cream APPLY 1 APPLICATION TOPICALLY TO AFFECTED AREA ONCE A DAY Active Active Problems Problem Noted Date Diagnosed Date ILD (interstitial lung disease) 01/03/2024 Social History Tobacco Use Types Packs/Day Years Used Date Smoking Tobacco: Never Passive Smoke Exposure: Never Smokeless Tobacco: Never Tobacco Cessation:Counseling Given: Not Answered Alcohol Use Standard Drinks/Week Comments Never 0 (1 standard drink = 0.6 oz pur e alcohol) Comments No Sex and Gender Information Value Date Recorded Sex Assigned at Female 10/16/2022 9:15 AM EDT Legal Sex Female 2:47 PM EST Gender Identity Female 10/16/2022 9:15 AM EDT Sexual Orientation Heterosexual (straight) 10/16 9:15 AM EDT Last Filed Vital Signs Vital Sign Reading Time Taken Comments Blood Pressure 112/72 01/03/2024 11:43 AM EDT Pulse 62 01/03/2024 11:43 AM EDT Temperature 35 C (95 F) 01/03/2024 11:43 AM EDT Respiratory Rate - [...] of 3 - 19+ 3-dose series) 06/28 Pap Smear (Ages 21-65) 1990 Mammogram 2009 Colonoscopy 2014 Pneumococcal Vaccines 50+ (1 of 1 - PCV) 2019 RSV Vaccine 50 years and old er and Patients (1 - Risk 50-74 years 1-dose series) 2019 Zoster (Shingles) Vaccine (1 of 2) 2019 Influenza Vaccine 01/26/2025 COVID-19 Vaccine ( - season) 2025 Insurance [employer] [facility] [employer] Care Teams Household Appliance Repairer Relationship Specialty Start Date End Date Марина Mercado MD [address] [place] [address] PCP - General Pediatric, General 05/14/22
--- OUTSIDE RECORDS SUMMARY | 2025-04-11 20:39 | XMS_ITS | Patient Health Record ---
Author Organization [facility] Address [address] [place] [address] Care Team Providers Care Glass Inserter Name Role Phone Марина Mercado M.D. Primary Care Provider Unavailable Flower Huang Unavailable [phone] Allergies Allergen (clinical drug ingredient) Drug/Non Drug [...] HCl Activ e Diclofenac Sodium 1 % External; Duration: 5 Active Albuterol Sulfate HFA 108 (90 Base) MCG/ACT Inhalation; Duration: 25 Active Nitroglycerin Active Aspirin Active Fluconazole 150 MG Oral; Duration: 28 Active Gabapentin 100 MG Oral; Duration: 30 Active Levothyroxine Sodium 175 MCG Oral; Duration: 35 Active Melatonin 1 MG Oral; Duration: 30 Active Social History Tobacco Use: Social History Observation [...] Problem Status W/U Status Risk Notes Problem Neuropathy (153472584) Neuropathy (G62.9) Active confirmed Problem Atherosclerosis of artery of left lower extremity (5399803654) Atherosclerosis of artery of left lower extremity (I70.202) Active confirmed Plan Of Treatment No Information Insurance Providers Payer Name Payer Address Payer Phone Subscriber Number Group Number Insured Name Patient Relationship to Insured Coverage Start Date Coverage End Date [facility] [employer] Claims [address] [place] [address] [id number] Genoveva Reveles Self - patient is the insured Medical (General) History Medical History History ICD Code Anxiety Arthritis asthma Back,Hip,and Knee pain Fibromyalgia Chicken pox Headaches/Migraines Lung disease Lupus Numbness raynauds disease thyroid Autoimmune disorder Surgical History Surgery Date(Month/Year) gall bladder 1989
--- OUTSIDE RECORDS SUMMARY | 2025-04-11 20:39 | XMS_ITS | Clinical Summary ---
Author Organization [facility] Address [address] [place] [phone] Phone Care Team Providers Care Environmental Attorney Name Role Phone Марина Mercado DO Primary Care Provider Allergies Active Allergy Reactions Criticality Noted Date Comments Acetaminophen Anaphylaxis,Other,Rash High 08/02/2006 Bee Venom Protein (Honey Bee) Anaphylaxis High 06/27/2024 Ciprofloxacin Rash 06/27/2024 Doxycycline GI intolerance,Other,Rash 7 Penicillins Anaphylaxis,Other,Rash High 08/02/2006 Sulfamethoxazole-Trimethopri m Angioedema,Swelling High 11/12/2020 Medications albuterol HFA (PROAIR HFA ; PROVENTIL HFA ; VENTOLIN HFA) 90 mcg/actuation inhaler Inhale 2 puffs by mouth every 6 (six) hours if needed for wheezing. Active cetirizine (ZyrTEC) 10 mg tablet Take 1 tablet (10 mg total) by mouth 1 (one) time each day. Active EPINEPHrine (EpiPen) 0.3 mg/0.3 mL injection Inject 0.3 mL (0.3 mg total) into the thigh if needed for anaphylaxis. Active fluticasone propionate (FLONASE) 50 mcg/actuation nasal spray Administer 2 sprays into each nostril 1 (one) time each day in the morning. Shake gently. Before first use, prime pump. After use, clean tip and replace cap. Active gabapentin (NEURONTIN) 300 mg capsule Take 1 capsule (300 mg total) by mouth 3 (three) times a day. Active levothyroxine (SYNTHROID, LEVOTHROID) 112 mcg tablet Take by mouth 1 (one) time each day before breakfast. Active LORazepam (ATIVAN) 0.5 mg tablet Take 1 tablet (0.5 mg total) by mouth every 6 (six) hours if needed for anxiety. Max Daily Amount: 2 mg Active omeprazole (PriLOSEC) [address] capsule Take 1 capsule (40 mg total) by mouth 1 (one) time each day. Do not crush or chew. Active ondansetron (ZOFRAN) 4 mg tablet Take 1 tablet (4 mg total) by mouth every 8 (eight) hours if needed for nausea or vomiting. Active Encounters Date Type Department Care Team Description 02/16/2025 10:00 AM EDT Ancillary Procedure [facility] [address] [facility] [address] [place] [address] Local edema; Chest pain, unspecified type from Last 3 Months Surgical History Surgery Date Site/Laterality Comments CHOLECYSTECTOMY 1987 PROCEDURE: HISTORICAL CHOLECYSTECTOMY TONSILLECTOMY 1975 PROCEDURE: HISTORICAL TONSILLECTOMY CHOLECYSTECTOMY PROCEDURE: [place] LAPAROSCOPY SURG CHOLECYSTECTOMY Medical History Medical History Date Comments Morbid obesity with BMI of 4 5.0-49.9, adult ([facility] V24, [facility]/HCC V28) 08/16/2006 DX:Morbid obesity wit h BMI of 45.0-49.9, adult ([facility]) SUGAR positive 07/29/2017 DX:SUGAR positive Anxiety 09/01/2013 DX:Anxiety Asthma 03/21/2010 DX:Asthma Degenerative arthritis of lumbar spine 0 DX:Degenerative arthritis of lumbar spine Fatty liver 06/10/2017 DX:Fatty liver Herpes pharyngitis 04/14/2012 DX:Herpes pha ryngitis Hypothyroidism 03/16/2012 DX:Hypothyroidis m Lumbago 10/14/2006 DX:Lumbago; COMM ENT: [facility] PT- discharged 10/2006, having met goal Obstructive sleep apnea 03/27/2017 DX:Obstr uctive sleep apnea; COMMENT: [facility] Home Polysomnogram: Date 03/17/2017; AHI 26, Unclassified apneas 0; Obstructive apneas 5; Central apneas 1; Mixed apneas 0; hypopneas 158; average oxygen saturation 90% (lowest 75% with saturations <88% for 5% or more of study) Prediabetes 01/28/2016 DX:Prediabetes Pulmonary nodular amyloidosi s (CMS/HCC V24, 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 DX:Pulmonary nodular amyloid osis (HCC) Radiculitis, [...] 1 Alive Daughter 2 Alive 1 daughter Gabr anahya, age 3, healthy, asthma Father mouth cancer [...] Sign Reading Time Taken Comments Blood Pressure 121/70 02/16/2025 10:23 AM EDT Pulse 60 06/27/2024 5:15 PM EST Temperature 36.7 C (98 F) 06/27/2024 5:15 PM EST Respiratory Rate 16 06/27/2024 5:15 PM EST Oxygen Saturation 97% 11/14/2024 8:52 AM EDT Inhaled Oxygen Concentration - - Weight 81.6 kg (180 lb) 02/16/2025 10:23 AM EDT Height 160 cm (5' 3 ) 02/16/2025 10:23 AM EDT Body Mass Index 31.89 02/16/2025 10:23 AM EDT Plan of Treatment Health Maintenance Due Date Last Done Comments Breast Cancer Screening 1969 Colorectal Cancer Screening: Colonoscopy 1969 DTaP,Tdap,and Td Vaccines (1 - Tdap) 1988 Hepatitis A Vaccines (1 of 2 - Risk 2-dose series) 1988 Hepatitis B Vaccines (1 of 3 - 19+ 3-dose series) 1988 Pneumococcal Vaccine: 50+ Ye ars (1 of 2 - PCV) 1988 Cervical Cancer Screening: P ap Smear 1990 RSV Immunization Adult Patie nts (1 - Risk 50-74 years 1-dose series) 2019 Zoster Vaccines (1 of 2) 2019 Cholesterol Screening (Lipid Panel) 05/31/2022 HIV Screening 05/31/2022 Hepatitis C Screening 05/31/2022 Medicare Annual Wellness Visit 05/31/2022 Social Influencers of Health Screening 05/31/2022 Depression Screening 06/28/2024 COVID-19 Vaccine (1 - 2023-2 5 season) 2025 Influenza Vaccine (#1) 2025 HIB Vaccines Aged Out No longer eligi [...] age to complete this topic Meningococcal B Vaccine Aged Out No l onger eligible based on patient's age to complete this topic RSV Immunization Patients Un linda 20 months Aged Out No longer eligible b ased on patient's age to complete this topic Varicella Vaccines Aged Out No longer eligible based on patient's age to complete this topic Procedures Procedure Name Priority Date/Time Associated Diagnosis Comments TRANSTHORACIC ECHOCARDIOGRAM (TTE) COMPLETE Routine 02/16/2025 10:23 AM EDT Local edema Chest pain, unspecified type from Last 3 Months Results * (ABNORMAL) TRANSTHORACIC ECHOCARDIOGRAM (TTE) COMPLETE (02/16/2025 10:23 AM EDT) Left Atrium Minor [place] 5.1 cm CV PACS Left Atrium Major [place] 5.2 cm CV PACS LA Area Sys (A2C) 17 cm2 CV PACS LA Area Sys (A4C) 18 cm2 CV PACS LA Volume (BP) 48 mL CV PACS RA Area 13.3 cm2 CV PACS RA 2D Volume 35 mL CV PACS AV Mean Gradient 3 mmHg CV PACS Ao VTI 25.6 cm CV PACS AV Peak Clay 1.2 m/s CV PACS AV Peak Gradient 5 mmHg CV PACS AV Area Continuity Equation 2.5 cm2 CV PACS AV Area Peak Velocity 2.6 cm2 CV PACS Aortic Sinus Valsalva 3.4 cm CV PACS Ascending Aorta 3.5 cm CV PACS IVSD 0.9 0.6 - 0.9 cm CV PACS LVIDD 4.7 3.8 - 5.2 cm CV PACS LVIDS 3.1 2.2 - 3.5 cm CV PACS LVOT Diameter 2.0 cm CV PACS LVOT Mean Grad 2 mmHg CV PACS LVOT Peak VTI 20.5 cm CV PACS LVOT Mean Clay 0.6 m/s CV PACS LVOT Peak Clay 0.9 m/s CV PACS LVOT Peak Gradient 4 mmHg CV PACS LVPWD 0.9 0.6 - 0.9 cm CV PACS MV E' Tissue Velocity Lateral 12 cm/s CV PACS MV E' Tissue Velocity Septal 8 cm/s CV PACS LVOT Area 3.1 cm2 CV PACS LVOT Stroke Volume 64 mL CV PACS E Wave Deceleration Time 246(A) 119 - 242 ms CV PACS MV Peak A Clay 0.80 m/s CV PACS MV Peak E Clay 0.60 m/s CV PACS PV Acceleration Time 123 ms CV PACS PV Acceleration Time 123 ms CV PACS PV Peak Velocity 0.8 m/s CV PACS PV Peak Gradient 3 mmHg CV PACS RV Diastolic Basal Dimension 3.5 2.5 - 4.1 cm CV PACS RV S' 11 cm/s CV PACS TAPSE 22 mm CV PACS TR Peak Velocity 1.90 m/s CV PACS TR Peak Gradient 14 mmHg CV PACS E/E' Ratio Septal 8 CV PACS E/E' Ratio Averaged 6 CV PACS LVOT Stroke Index 0 mL/m2 CV PACS Relative Wall Thickness ratio 0.39 0.22 - 0.42 CV PACS LVOT:AV VTI Index 0.80 CV PACS FS 34 % CV PACS LV Mass 2D 140 66 - 150 g CV PACS Ascending Aorta Index 1.89 cm/m2 CV PACS LVOT flow 188 mL/s CV PACS RA 2D Volume Index 19 15 - 27 mL/m2 CV PACS JAIDEN Index (VTI) 1.36 cm2/m2 CV PACS JAIDEN Index (Pk Clay) 1.41 cm2/m2 CV PACS LVIDD Index 2.54 cm/m2 CV PACS LVIDS Index 1.68 cm/m2 CV PACS AV Velocity Ratio 0.81 CV PACS E/A Ratio 0.8 0.8 - 2.0 CV PACS E/E' Ratio Lateral 5 CV PACS LA Volume Index (BP) 25 mL/m2 CV PACS LV Mass Index 2D 77 44 - 88 g/m2 CV PACS BSA 1.9 m2 CV PACS Right Ventricular Peak Systolic Pressure 17 mmHg CV PACS Est. RA Pressure 3 mmHg CV PACS LVOT Cardiac Output 0.0 L/min CV PACS LVOT Cardiac Index 2.2 L/min/m2 CV PACS RV Free Wall Peak S' 11 cm/s CV PACS RA Major [place] 4.1 cm CV PACS RA Major [place] Index 2.2 2.2 - 2.8 cm/m2 CV PACS MV PHT 71 ms CV PACS AV Area 2D 2.6 cm2 CV PACS JAIDEN Index (2D) 1.41 cm2/m2 CV PACS AV Area Index 1.3 CV PACS Anatomical Region Laterality Modality Ultrasound Narrative 02/21/2025 11:55 AM EDT Left ventricle cavity size is normal. Left ventricular systolic function is in the normal range with an ejection fraction of 55-60%. No regional LV wall motion abnormalities noted. Left ventricle wall thickness is normal. Right ventricle cavity is normal. Right ventricular systolic function is normal. The atria are normal in size. No hemodynamically significant valve disease. See remainder of the report for additional findings. Left Ventricle Left ventricle cavity size is normal. Wall thickness is normal. Systolic function is normal with an ejection fraction of 55-60%. There are no regional LV wall motion abnormalities. There is no diastolic dysfunction. Right Ventricle Right ventricle cavity appears normal. Systolic function is normal. Left Atrium Left atrium volume index is normal. Right Atrium Right atrium cavity is normal. IVC/SVC RA pressures is estimated to be 3 mmHg (IVC diameter <21 mm and decreases >50% during inspiration). Mitral Valve The leaflets are mildly thickened. There is trace regurgitation. There is no evidence of mitral valve stenosis. Tricuspid Valve The leaflets exhibit normal excursion. There is trace regurgitation. The RVSP is estimated at 17 mmHg. Aortic Valve The aortic valve is trileaflet. There is trace regurgitation. There is no evidence of aortic valve stenosis. Pulmonic Valve The pulmonic valve was not well visualized. There is trace pulmonic valve regurgitation. Ascending Aorta The aorta appears normal in size. Pericardium Pericardium appears normal. There is no pericardial effusion. Study Details Overall the study quality was adequate. Patient declined use of left ventricular opacification agent to enhance imaging. us Bubba Harris MD CV ECHO PROCEDURES Final Result from Last 3 Months Insurance [facility] MEDICARE Member Subscriber Plan / Payer (Ef fective 2020-Present) Name:TASHA KAPADIA Relation to Subscriber:Self Name:Tasha Kapadia Payer ID:[id number] Group ID:[id number] Type:Not on file Address: [address] [place] [address] Care Teams Environmental Attorney Relationship Specialty Start Date End Date Марина Mercado DO [address] [place] [address] PCP - General Pediatrics 12/22/16
--- OUTSIDE RECORDS SUMMARY | 2025-04-11 20:39 | XMS_ITS | Clinical Summary ---
Author Organization [facility] Address [address] [place] [address] Phone Care Team Providers Care Wire Taper Name Role Phone Марина Mercado DO Primary Care Provid er Allergies Active Allergy Reactions Criticality Noted Date Comments Sulfamethoxazole-Trimethoprim 2020 Doxycycline Calcium 11/12/2020 Levofloxacin 11/12/2020 Penicillins 11/12/2020 Acetaminophen 11/12/2020 Medications levothyroxine sodium (LEVOTHYROXINE ORAL) Take by mouth. Active budesonide-formo terol (SYMBICORT) 160-4.5 mcg/actuation inhaler Inhale 2 puffs into the lungs 2 (two) times a day. Active cholecalciferol 10 mcg (400 unit) chewable tablet Take by mouth. Active Social History Tobacco Use Types Packs/Day Years Used Date Smoking Tobacco: Never Assessed Education Answer Date Recorded Are you interested in more education? Not on alisha e 10/24/2022 Are you concerned about learning? Not on file 10/24/2022 No 10/24/2022 No 10/24/2022 Digital Access Answer Date Recorded No 11/24/2022 No 11/24/2022 Reliable internet access at home? Not on file 11/24/2022 Device with a working camera? Not on file Comments Unknown Sex and Gender Information Value Date Recorded Sex Assigned at Female 10/31/2020 3:35 PM EDT Legal Sex Female 3:26 PM EDT Gender Identity Female 10/31/2020 3:35 PM EDT Sexual Orientation Straight 10/31/2020 3: 35 PM EDT Plan of Treatment Health Maintenance Due Date Last Done Comments Adult Td,Tdap Booster 1969 LIPID PANEL 1969 TSH LEVEL 1969 DEPRESSION SCREENING 1981 SMOKING Hx and SMOKELESS TOB ACCO SCREENING 1982 HEPATITIS C SCREENING 1987 HIV ONE-TIME SCREENING (18-6 5 YEARS) 1987 PAP SMEAR 1990 MAMMOGRAM 2009 COLOGUARD 2014 COLONOSCOPY 2014 COLORECTAL CANCER SCREENING 2014 FIT TEST 2014 FOBT 2014 SIGMOIDOSCOPY 2014 VIRTUAL COLONOSCOPY 2014 PNEUMOCOCCAL VACCINES (50+ y ears) (1 of 1 - PCV) 2019 ZOSTER VACCINES (1 of 2) 2019 INFLUENZA VACCINE (#1) 2025 COVID-19 VACCINE ( - 2024-2 6 season) 2025 RSV VACCINE (1 - 1-dose 75+ series) 2044 HEPATITIS A VACCINES Aged Out No long er eligible based on patient's age to complete this topic HIB VACCINES Aged Out No longer eligi ble based on patient's age to complete this topic MENINGOCOCCAL VACCINES (ACWY) Aged Out No longer eligible based on patient's age to complete this topic MENINGOCOCCAL VACCINES (B) Aged Out N o longer eligible based on patient's age to complete this topic Medical Devices Not on file Insurance [facility] [employer] MEDICARE REPLACEMENT [place] [id number] [place] [address] [facility] [employer] MEDICARE REPLACEMENT Care Teams Wire Taper Relationship Specialty Start Date End Date Марина Mercado DO [address] [place] [phone] PCP - General Pediatrics 10/31/20 Additional Source Comments The information contained in this document represents components of the legal health record. It is not the complete legal health record.[facility]
--- NOTE | 2025-04-11 21:43 | PC.NURSE ---
Pt left with out receiving discharge instructions
== END 2025-04-11 21:44 | disposition home or self-care (01) ==
PROVIDERS: Emergency Provider Emergency Medicine; PCP Pediatrics
DX: S60.211A Contusion of right wrist, initial encounter (principal); S60.212A Contusion of left wrist, initial encounter; M25.532 Pain in left wrist; M25.531 Pain in right wrist; X50.1XXA Overexertion from prolonged static or awkward postures, initial encounter; Y93.9 Activity, unspecified; Y92.9 Unspecified place or not applicable; Y99.8 Other external cause status
CPT/HCPCS: 73110; 73130; 99281; 99283

== ENCOUNTER → 2025-04-11 16:36 | Outpatient (BNV) | payer OTHER, SELFPAY | PROVIDERS: PCP Pediatrics; Visit Provider Radiology Diagnostic Radiology | DX: S60.211A Contusion of right wrist, initial encounter (principal); S60.212A Contusion of left wrist, initial encounter; M79.641 Pain in right hand; M79.642 Pain in left hand | CPT/HCPCS: 73110; 73130 ==